=== PATIENT | male | born 1990 | race Caucasian/White ===

== ENCOUNTER 2016-08-15 17:26 | Emergency (ER) | payer OTHER ==
[2016-08-15 20:45] LABS: Hematocrit 44 % (42-52); Mean Corpuscular HGB Conc 34 g/dl (31-36); Mean Corpuscular Hemoglobin 27 pg (27-31); Mean Corpuscular Volume 79 fL (80-94); Mean Platelet Volume 7 um3 (7.4-10.4); Red Blood Count 5.56 10^6/ul (4.0-5.4); Red Cell Distribution Width 15 % (10.5-15); White Blood Count 5.6 10^3/ul (3.5-10.8)
[2016-08-15 21:03] LABS: ALT 19 U/L (7-52); AST 17 U/L (13-39); Albumin 4.3 g/dL (3.2-5.2); Alkaline Phosphatase 59 U/L (34-104); Anion Gap 3 mmol/L (2-11); BUN/Creatinine Ratio 16.2 (8-20); Blood Urea Nitrogen 17 mg/dL (6-24); CO2 Carbon Dioxide 28 mmol/L (22-32); Calcium 9.5 mg/dL (8.6-10.3); Chloride 103 mmol/L (101-111); EGFR African American 110.7 (>60); EGFR Non-African American 86.1 (>60); Glucose 83 mg/dL (70-100); Potassium 4.3 mmol/L (3.5-5.0); Sodium 134 mmol/L (133-145); Total Protein 7.3 g/dL (6.4-8.9)
[2016-08-15 21:03] LABS: Urine Bilirubin Negative (Negative); Urine Glucose Negative (Negative); Urine Nitrite Negative (Negative)
[2016-08-15 21:18] LABS: Benzodiazepine Urine Screen None Detected (None Detect)
[2016-08-15 21:29] LABS: Acetaminophen < 15 mcg/mL; Alcohol < 10 mg/dL (<10); Salicylate < 2.50 mg/dL (<30)
[2016-08-15 21:40] LABS: TSH (Thyroid Stimulating Horm) 1.93 mcIU/mL (0.34-5.60)
[2016-08-16 00:31] VITALS: BP 126/78
--- NOTE | 2016-08-16 00:42 | ED ---
arcelia Licona Timothy, scribed for Daniel Verdugo on 08/15/16 at 1926 . Psychiatric Complaint - HPI Summary HPI Summary: Vadim Bertrand III is a 26 yo male presenting to [facility] with anxiety and sinusitis since 1500. Pt states his pupils were not the same size, and felt a surreal feeling with a smell of ammonia. He states he has not had a bad anxiety attack in a while. He has taken clonazapam and feels better. He denies any depression or SI. He states he had difficulty getting his medication, and just recently returned to full dosage of his medication. His MHx includes panic anxiety, ADHD. - History Of Current Complaint Chief Complaint: EDGeneral Time Seen by Provider: 08/15/16 19:18 Hx Obtained From: Patient Onset/Duration: Sudden Onset Timing: Intermittent Episode Lasting - hours Severity Initially: Moderate Severity Currently: Moderate Character: Anxious Related History: Positive For: Prior Psychiatric Issues Has Suicidal: Denies: Thoughts, With A Plan Has Homicidal: Denies: Thoughts, With A Plan - Allergies/Home Medications Allergies/Adverse Reactions: Allergies Allergy/AdvReac Type Severity Reaction Status Date / Time Cefaclor [From [facility]] Allergy Unknown Unknown Verified 08/15/16 17:41 Reaction Details Sulfa Antibiotics Allergy Unknown Unknown Verified 08/15/16 17:41 Reaction Details PMH/Surg Hx/FS Hx/Imm Hx Endocrine/Hematology History: Denies: Hx Anticoagulant Therapy, Hx Diabetes, Hx Thyroid Disease Cardiovascular History: Denies: Hx Congestive Heart Failure, Hx Deep Vein Thrombosis, Hx Hypertension , Hx Myocardial Infarction, Hx Pacemaker/ICD Respiratory History: Denies: Hx Asthma, Hx Chronic Obstructive Pulmonary Disease (COPD), Hx Lung Cancer, Hx Pneumonia, Hx Pulmonary Embolism GI History: Reports: Hx Gastroesophageal Reflux Disease Denies: Hx Gall Bladder Disease, Hx Gastrointestinal Bleed, Hx Ulcer, Hx Urosepsis History: Denies: Hx Kidney Stones, Hx Renal Disease Neurological History: Reports: Other Neuro Impairments/Disorders - hx of childhood febrile seizures Denies: Hx Dementia, Hx Migraine, Hx Seizures, Hx Transient Ischemic Attacks (TIA) Psychiatric History: Reports: Hx Anxiety Denies: Hx Depression, Hx Schizophrenia, Hx Bipolar Disorder Infectious Disease History: No Infectious Disease History: Denies: Hx Clostridium Difficile, Hx Hepatitis, Hx Human Immunodeficiency Virus (HIV), Hx of Known/Suspected MRSA, Hx Shingles, Hx Tuberculosis, Hx Known/ Suspected VRE, Hx Known/Suspected VRSA, History Other Infectious Disease, Traveled Outside the [place] in Last 30 Days - Family History Known Family History: Positive: Hypertension Negative: Cardiac Disease, Diabetes - Social History Alcohol Use: None Substance Use Type: Reports: None Smoking Status (MU): Light Every Day Tobacco Smoker Review of Systems Constitutional: Negative Eyes: Other - different sized pupils Positive: Nasal Discharge Cardiovascular: Negative Respiratory: Negative Gastrointestinal: Negative Genitourinary: Negative Musculoskeletal: Negative Skin: Negative Neurological: Negative Psychological: Normal All Other Systems Reviewed And Are Negative: Yes Physical Exam Triage Information Reviewed: Yes Vital Signs On Initial Exam: Initial Vitals Temp Pulse Resp BP Pulse Ox 98.9 F 91 16 136/81 100 08/15/16 17:41 08/15/16 17:41 08/15/16 17:41 08/15/16 17:41 08/15/16 17:41 Vital Signs Reviewed: Yes Appearance: Positive: Well-Appearing, No Pain Distress Skin: Positive: Warm, Skin Color Reflects Adequate Perfusion, Dry Head/Face: Positive: Normal Head/Face Inspection Eyes: Positive: EOMI, SHIN ENT: Positive: Normal ENT inspection, Hearing grossly normal. Negative: Muffled /hoarse voice Neck: Positive: Supple, Nontender Respiratory/Lung Sounds: Positive: Clear to Auscultation, Breath Sounds Present Cardiovascular: Positive: RRR, Pulses are Symmetrical in both Upper and Lower Extremities Abdomen Description: Positive: Nontender, Soft Bowel Sounds: Positive: Present Musculoskeletal: Positive: Normal, Strength/ROM Intact Neurological: Positive: Normal, Sensory/Motor Intact, Alert, Oriented to Person Place, Time Psychiatric: Positive: Normal Diagnostics - Vital Signs Vital Signs Temp Pulse Resp BP Pulse Ox 08/15/16 18:46 98.7 F 85 16 108/76 100 08/15/16 17:41 98.9 F 91 16 136/81 100 - Laboratory Result Diagrams: 08/15/16 20:37 08/15/16 20:37 Lab Statement: Any lab studies that have been ordered have been reviewed, and results considered in the medical decision making process. Course/Dx - Course Assessment/Plan: Vadim Bertrand III is a 26 yo male presenting to [facility] with "uneven pupils" and anxiety. After review of his lab work, he is medically cleared for MHUE at 2126. He does not want to be evaluated, so he will leave AMA with his with no SI or HI, and will see his counselor tomorrow. - Differential Dx/Clinical Impression Provider Diagnosis: Anxiety Discharge - Discharge Plan Condition: Stable Disposition: AGAINST MEDICAL ADVICE Discharge Disposition Comment: does not wish to be evaluated The documentation as recorded by the arcelia fischer Timothy accurately reflects the service I personally performed and the decisions made by , Daniel Verdugo.
== END 2016-08-16 00:29 | disposition left against medical advice (07) ==
LOC: ED 17:26
DX: F41.9 Anxiety disorder, unspecified (principal); F17.210 Nicotine dependence, cigarettes, uncomplicated
CPT/HCPCS: 36415; 80053; 80307; 80320; 80329; 81003; 84443; 85025; 99283; G0480

== ENCOUNTER 2016-08-24 13:20 | Emergency (ER) | payer OTHER ==
[2016-08-24 13:40] VITALS: BP 125/82
--- NOTE | 2016-08-24 14:24 | UC ---
Melody Licona Anna, scribed for [facility],Jerson Rico MD on 08/24/16 at 1336 . Cardiac HPI - HPI Summary HPI Summary: MD Note Patient presents with CP, anxiety, and heart burn. Review of previous visits shows complaints of anxiety, panic attack, but no cardiovascular symptoms. Patient allergic to Cefaclor and Sulfa Antibiotics. Is on Effexor and Klonopin. Vital signs stable. Temperature 99.2. Pulse Ox 100. 1/10 discomfort. Nondrinker, light smoker. Hx anxiety and acid reflux. Nurses Note sinus congestion for past couple days. past couple months has had stomach bloating on and off. has had chest "discomfort" for past 20-3- minutes. pt states has history of acid reflux and anxiety, lost acid reflux medication. pt has been emotional on and off today and has had problems with anxiety. In Room Note Patient is a 26 y/o male coming to [facility] [place] presenting with sudden onset of CHEST DISCOMFORT that began about 1300 today. He says the discomfort feels like small little spots on either side of his sternum, lasting a few seconds each. He describes the severity of the pain as 1/10. He has GROGGY EYES, NASAL DRIP, CONGESTION, rare COUGHING, some DIZZINESS, one episode of EMESIS and BLOATED ABD. He reports some LEFT ARM PAIN at baseline. He sees a chiropractor for this. He denies diarrhea, ear pain, throat pain, APPIAH. His history is significant for anxiety and GERD. He no longer has his GERD medication. He was previously on Renatadine. He was on time-release Effexor, but after changing counselors, he was only taking a half-dose. He is now back on a full dose of Effexor and taking Klonopin for his anxiety. Two weeks ago, he became a father, which has been stressful and aggravating his anxiety. He denies a history of migraines, [place] , significant allergies. Onset: sudden Palliative/Provocative: chest pain Quality: discomfort Region: chest Severity: 1/10 Time: constant Associated Sx: Anxiety Home Rx: none - History of Current Complaint Stated Complaint: CHEST PAIN,ANXIETY,HEARTBURN Hx Obtained From: Patient, Family/[employer] - accompanied by grandmother Onset/Duration: Lasting Minutes, Still Present Initial Severity: Moderate Current Severity: Moderate Associated Signs & Symptoms: Positive: Anxiety - Allergy/Home Medications Allergies/Adverse Reactions: Allergies Allergy/AdvReac Type Severity Reaction Status Date / Time Cefaclor [From [facility]] Allergy Unknown Unknown Verified 08/15/16 17:41 Reaction Details Sulfa Antibiotics Allergy Unknown Unknown Verified 08/15/16 17:41 Reaction Details PMH/Surg Hx/FS Hx/Imm Hx Endocrine History Of: Denies: Diabetes, Thyroid Disease, Hyperthyroidism, Hypothyroidism, Dyslipidemia Cardiovascular History Of: Denies: Cardiac Disorders, Hypertension, Pacemaker/ICD, Myocardial Infarction , Congestive Heart Failure, Atrial Fibrillation, Deep Vein Thrombosis, Bleeding Disorders Respiratory History Of: Denies: COPD, Asthma, Bronchitis, Pneumonia, Pulmonary Embolism GI/ History Of: Reports: Gastroesophageal Reflux - He does not take any medication for this at this [facility]. Denies: Ulcer, Gastrointestinal Bleed, Gall Bladder Disease, Kidney Stones, Diverticulitis, Renal Disease, Urosepsis Neurological History Of: Denies: TIA, CVA, Dementia, Seizures, Migraine Psychological History Of: Reports: Anxiety Denies: Depression, Bipolar Disorder, Schizophrenia, Post Traumatic Stress Disorder Cancer History Of: Denies: Lung Cancer, Colorectal Cancer, Breast Cancer, Prostate Cancer, Cervical Cancer Other History Of: Negative For: HIV, Hepatitis B, Hepatitis C, Anticoagulant Therapy - Surgical History Surgical History: None - Family History Known Family History: Positive: Hypertension, Other - Anxiety Negative: Cardiac Disease, Diabetes - Social History 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 Lives: With Family Alcohol Use: None Substance Use Type: None Smoking Status (MU): Light Every Day Tobacco Smoker Household Exposure Type: Cigarettes Review of Systems Constitutional: Negative Skin: Negative Eyes: Other - "groggy" eyes ENT: Nasal Discharge, Other - Congestion Respiratory: Cough Cardiovascular: Chest Pain Gastrointestinal: Abdominal Pain - "bloated" abd, Vomiting Genitourinary: Negative Motor: Negative Neurovascular: Negative Musculoskeletal: Negative Neurological: Other - dizziness Psychological: Negative All Other Systems Reviewed And Are Negative: Yes Physical Exam Triage Information Reviewed: Yes Appearance: Well-Appearing, No Pain Distress, Well-Nourished Vital Signs: Initial Vital Signs Temp 99.2 F 08/24/16 13:31 Pulse 84 08/24/16 13:31 Resp 16 08/24/16 13:31 BP 125/82 08/24/16 13:31 Pulse Ox 100 08/24/16 13:31 Vital Signs Reviewed: Yes Eyes: Positive: Conjunctiva Clear ENT: Positive: Hearing grossly normal, Pharynx normal, TMs normal. Negative: Muffled/hoarse voice Neck: Positive: Supple, Nontender Respiratory: Positive: Chest non-tender, Lungs clear, Normal breath sounds, No respiratory distress Cardiovascular: Positive: RRR, No Murmur Abdomen Description: Positive: No Organomegaly, Soft, Other: - Abdominal exam shows mild epigastric discomfort to patient. Negative: Peritoneal Signs Bowel Sounds: Positive: Present Musculoskeletal: Positive: Strength Intact, Other: - [place] Neurological: Positive: Alert Psychological: Positive: Age Appropriate Behavior Skin: Negative: rashes Diagnostics - EKG Cardiac Rate: NL - 74 bpm, no ischemia Cardiac Rhythm: Sinus: Normal Ectopy: None ST Segment: Normal - Assessment/Plan Course Of Treatment: In discussion with patient and grandmother, we decided that many of his symptoms were due to anxiety. I assured him that he was not having a heart attack, and that I was pleased that he was now on his full dose of anti-anxiety medication, because he had run out of his medication for peptic discomfort, I will fill that medication. Patient and grandmother voiced understanding and agreement. - Differential Diagnoses - Chest Pain Differential Diagnosis/HQI/PQRI: Other: - cardiovascular disease v. anxiety v. acid reflux - Clinical Impression Provider Diagnoses: 1. Anxiety. 2. Transient chest discomfort secondary to anxiety. 3. Peptic disease Discharge - Discharge Plan Condition: Stable Disposition: HOME Prescriptions: Ranitidine HCl [Zantac 150 Maximum Streng] 150 mg PO BID #60 tab MDD 2 Patient Education Materials: Chest Pain (ED) Referrals: Frank Reich MD [Primary Care Provider] - Additional Instructions: WE DISCUSSED: 1. You are not having a heart attack. 2. You do have anxiety. 3. You do have acid reflux. I have refilled your acid reflux medication. Also, take Mylanta after meals and whenever you have pain. (2 tablespoons). Zantac (Ranitidine HCL) 150 mg Label: one by mouth twice daily The documentation as recorded by the Melody fischer Anna accurately reflects the service I personally performed and the decisions made by me, Jerson Barnett MD.
== END 2016-08-24 14:52 | disposition home or self-care (01) ==
LOC: UCEAST 13:20
DX: R07.89 Other chest pain (principal); F41.9 Anxiety disorder, unspecified; K30 Functional dyspepsia; Z88.1 Allergy status to other antibiotic agents; Z88.2 Allergy status to sulfonamides; F17.210 Nicotine dependence, cigarettes, uncomplicated
CPT/HCPCS: 93005; 99212; G0463

== ENCOUNTER 2016-08-28 15:14 | Emergency (ER) | payer OTHER ==
[2016-08-28 16:11] VITALS: BP 136/85
--- NOTE | 2016-08-28 16:48 | UC ---
Throat Pain/Nasal Tanner HPI - HPI Summary HPI Summary: complaint of anxiety for many years was on effexor which was controlling his anxiety but due to changing ccounselors he ran out of his medications has been on a month of only 75 mg of effexor for a month started back on his regular medication in the last 2 weeks but he is having more anxiety than usual more stress in his life d/t - denies any suicidal/homicidal ideation took klonopin at 1600 and that has helped him feel better- feels calm at this time complaint of nasal congestion for approx 3-4 days productive cough denies headaches, sore throat denies fever and chills - History of Current Complaint Chief Complaint: UCRespiratory Stated Complaint: RESP COMPLAINT Time Seen by Provider: 08/28/16 16:38 Hx Obtained From: Patient - Allergies/Home Medications Allergies/Adverse Reactions: Allergies Allergy/AdvReac Type Severity Reaction Status Date / Time Cefaclor [From Ceclor] Allergy Unknown Unknown Verified 08/15/16 17:41 Reaction Details Sulfa Antibiotics Allergy Unknown Unknown Verified 08/15/16 17:41 Reaction Details PMH/Surg Hx/FS Hx/Imm Hx Previously Healthy: No - anxiety Endocrine History Of: Denies: Diabetes, Thyroid Disease, Hyperthyroidism, Hypothyroidism, Dyslipidemia Cardiovascular History Of: Denies: Cardiac Disorders, Hypertension, Pacemaker/ICD, Myocardial Infarction , Congestive Heart Failure, Atrial Fibrillation, Deep Vein Thrombosis, Bleeding Disorders Respiratory History Of: Denies: COPD, Asthma, Bronchitis, Pneumonia, Pulmonary Embolism GI/ History Of: Reports: Gastroesophageal Reflux - He does not take any medication for this at this tiem. Denies: Ulcer, Gastrointestinal Bleed, Gall Bladder Disease, Kidney Stones, Diverticulitis, Renal Disease, Urosepsis Neurological History Of: Denies: TIA, CVA, Dementia, Seizures, Migraine Psychological History Of: Reports: Anxiety Denies: Depression, Bipolar Disorder, Schizophrenia, Post Traumatic Stress Disorder Cancer History Of: Denies: Lung Cancer, Colorectal Cancer, Breast Cancer, Prostate Cancer, Cervical Cancer Other History Of: Negative For: HIV, Hepatitis B, Hepatitis C, Anticoagulant Therapy - Surgical History Surgical History: None - Family History Known Family History: Positive: None, Hypertension, Other - Anxiety Negative: Cardiac Disease, Diabetes - Social History Occupation: Employed Part-time Lives: With Family Alcohol Use: None Substance Use Type: None Smoking Status (MU): Unknown if Ever Smoked Type: Smokeless Tobacco Household Exposure Type: Cigarettes Review of Systems Constitutional: Negative Skin: Negative Eyes: Negative ENT: Nasal Discharge Respiratory: Cough Cardiovascular: Negative Gastrointestinal: Negative Genitourinary: Negative Motor: Negative Neurovascular: Negative Musculoskeletal: Negative Neurological: Negative Psychological: Anxious - more controlled All Other Systems Reviewed And Are Negative: Yes Physical Exam Triage Information Reviewed: Yes Appearance: No Pain Distress, Well-Nourished Vital Signs: Initial Vital Signs Temp 97.8 F 08/28/16 16:05 Pulse 97 08/28/16 16:05 Resp 18 08/28/16 16:05 BP 136/85 08/28/16 16:05 Pulse Ox 99 08/28/16 16:05 Vital Signs Reviewed: Yes Eyes: Positive: Conjunctiva Clear ENT: Positive: Pharyngeal erythema, Nasal congestion, Nasal drainage, TMs normal. Negative: Tonsillar swelling, Tonsillar exudate Neck: Positive: No Lymphadenopathy Respiratory: Positive: Lungs clear, Normal breath sounds, No respiratory distress Cardiovascular: Positive: RRR, No Murmur, Pulses Normal Abdomen Description: Positive: Nontender, No Organomegaly, Soft Musculoskeletal: Positive: No Edema Neurological: Positive: Alert Psychological: Positive: Other: - slightly anxious Skin Exam: Normal Throat Pain/Nasal Course/Dx - Differential Dx/Diagnosis Differential Diagnosis/HQI/PQRI: URI Provider Diagnoses: URI. anxiety Discharge - Discharge Plan Condition: Stable Disposition: HOME Prescriptions: Guaifenesin 400 mg PO BID #10 tab Patient Education Materials: Upper Respiratory Infection (ED), Anxiety (ED) Referrals: Frank Reich MD [Primary Care Provider] - Additional Instructions: VIRAL UPPER RESPIRATORY INFECTION (COMMON COLD) If your anxiety becomes uncontrolled please proceed to the emergency department for further evaluation What is Viral Upper Respiratory Infection? Viral upper respiratory infection is the medical term for the common cold. Respiratory infections can be caused by either a virus or bacteria. The common cold is caused by a virus. The virus travels through the air and can be passed easily from one person to another. This is one reason that it is so important to cover your mouth when you cough or sneeze. When you cover your mouth you will get the virus on your hands. If you touch something with that hand the virus is spread to the object you touch. Because of this you should be sure to wash your hands often when you have a cold. Symptoms usually begin 1 to 3 days after the virus takes hold in your body. Other people can catch your cold even before you start to notice symptoms, which is one reason why colds are hard to prevent. Symptoms May Include: Scratchiness or tickling in the throat Sore throat Stuffy nose Generalized aches and pains Coughing or sneezing Feeling tired Treatment Recommendations: Drink plenty of clear, nonalcoholic fluids, such as water, sports drinks, or juice. For example, an average adult should drink 8 ounces every hour, a child 6 to 10 years should drink 4 ounces every hour, and a child under 6 should drink 1 to 2 ounces every hour. You should rest as much as possible. You can use a cool-mist humidifier or steam vaporizer to increase air moisture. This will make it easier to breathe. Remember that a steam vaporizer may contain hot water that can cause severe curry. If you smoke, stopsmoke irritates bronchial passages. If you are coughing up mucus, and milk seems to make the sputum thicker, do not eat or drink foods that contain milk. You want to try to cough up mucous whenever possible so that you dont get pneumonia. Do not use cough suppressant medicine without your healthcare providers [place]. You should take all medications prescribed until completely gone, or as instructed. Non-prescription medicine such as acetaminophen (Tylenol) or ibuprofen (Motrin , Advil) may help your aches, pains, and fever. Do not take someone else's medicine, or penicillin tablets that you may have saved. You could cause a more serious problem than you already have. Don't bundle up to sweat out a fever. It only makes your fever worse. If you feel cold, cover up; if you feel warm, dress lightly.
== END 2016-08-28 17:07 | disposition home or self-care (01) ==
LOC: UCEAST 15:14
DX: J06.9 Acute upper respiratory infection, unspecified (principal); F41.9 Anxiety disorder, unspecified; Z88.1 Allergy status to other antibiotic agents; Z88.2 Allergy status to sulfonamides; Z77.22 Contact with and (suspected) exposure to environmental tobacco smoke (acute) (chronic)
CPT/HCPCS: 99212; G0463

== ENCOUNTER 2016-09-29 15:52 | Emergency (ER) | payer OTHER ==
[2016-09-29 19:56] VITALS: BP 124/81
--- NOTE | 2016-10-09 10:35 | UC ---
Analilia Licona Erika, scribed for Ashley Isaac DO on 09/29/16 at 1931 . Psychiatric Complaint HPI - HPI Summary HPI Summary: Patient is a 26-year-old male presenting to [facility] with a CC of anxiety. He has a Hx anxiety, but it has been under good control until today. Patient reports that he notes dullness in the left shoulder, axilla, and arm, which sometimes goes to the neck, which sparked the anxiety. He has had these pains chronically. He reports that his anxiety is usually linked to concerns about his health. Patient notes recent stress. Patient also reports sore throat for the past two days. He states his left jaw has been popping for about the past month and a half. He denies all other symptoms include diaphoresis, nausea, vomiting, and diarrhea. Hx "air in stomach" - sees a approver. Denies FHx [place], sudden deaths before 50. Patient does not smoke. - History Of Current Complaint Chief Complaint: UCAlteredMentalStatus Stated Complaint: ANXIETY, AND JAW PAIN Time Seen by Provider: 09/29/16 16:54 Hx Obtained From: Patient Onset/Duration: Gradual Onset, Lasting Hours, Resolved Timing: Constant Severity Initially: Moderate Severity Currently: None Character: Anxious Aggravating Factor(s): Recent Stress Related History: Positive For: Prior Psychiatric Issues - anxiety - Allergies/Home Medications Allergies/Adverse Reactions: Allergies Allergy/AdvReac Type Severity Reaction Status Date / Time Cefaclor [From Ceclor] Allergy Unknown Unknown Verified 09/29/16 16:35 Reaction Details Sulfa Antibiotics Allergy Unknown Unknown Verified 09/29/16 16:35 Reaction Details PMH/Surg Hx/FS Hx/Imm Hx Endocrine History Of: Denies: Diabetes Cardiovascular History Of: Denies: Hypertension Psychological History Of: Reports: Anxiety Cancer History Of: Denies: Lung Cancer, Colorectal Cancer, Breast Cancer, Prostate Cancer, Cervical Cancer Other History Of: Negative For: HIV, Hepatitis B, Hepatitis C, Anticoagulant Therapy - Surgical History Surgical History: None - Family History Known Family History: Positive: Hypertension, Other - Anxiety Negative: Cardiac Disease, Diabetes - Social History Occupation: Employed Full-time Lives: With Family Alcohol Use: None Substance Use Type: None Smoking Status (MU): Never Smoked Tobacco Review of Systems Constitutional: Negative Skin: Negative Eyes: Negative ENT: Sore Throat, Other - left jaw popping Respiratory: Negative Cardiovascular: Negative Gastrointestinal: Negative Genitourinary: Negative Motor: Negative Neurovascular: Negative Musculoskeletal: Other: - dullness in the left shoulder, axilla, arm, neck Neurological: Negative Psychological: Anxious All Other Systems Reviewed And Are Negative: Yes Physical Exam Triage Information Reviewed: Yes Appearance: Well-Appearing, No Pain Distress, Well-Nourished Vital Signs: Initial Vital Signs Temp 99.1 F 09/29/16 16:28 Pulse 100 09/29/16 16:28 Resp 20 09/29/16 16:28 BP 121/88 09/29/16 16:28 Pulse Ox 99 09/29/16 16:28 Vital Signs Reviewed: Yes Eyes: Positive: Conjunctiva Clear. Negative: Discharge ENT: Positive: Hearing grossly normal, TMs normal. Negative: Tonsillar swelling , Tonsillar exudate, Trismus, Muffled/hoarse voice Dental Exam: Other - palpable tension in the left TMJ with displacement and clicking of the jaw when open to fullest extension Neck: Positive: Supple, Nontender Respiratory: Positive: Lungs clear, Normal breath sounds, No respiratory distress, No accessory muscle use Cardiovascular: Positive: RRR, No Murmur Musculoskeletal Exam: Other - diminished pulse with external rotation, extension , and abduction of the shoulder Musculoskeletal: Positive: Strength Intact, ROM Intact Neurological: Positive: Alert, Muscle Tone Normal Psychological Exam: Normal Psychological: Positive: Age Appropriate Behavior Skin Exam: Other - warm, dry, normal color Diagnostics - Laboratory Diagnostic Studies Completed/Ordered: EKG at 16:19. NSR at [address] changes. Psych Complaint Course/Dx - Differential Dx/Diagnosis Differential Diagnosis/HQI/PQRI: Anxiety Provider Diagnoses: thoracic outlet, anxiety, tmj syndrom Discharge - Discharge Plan Condition: Stable Disposition: HOME Patient Education Materials: Temporomandibular Disorder (ED), Thoracic Outlet Syndrome (ED), Anxiety (ED) Referrals: Frank Reich MD [Primary Care Provider] - If Needed (FOLLOW UP IN 3-5 DAYS) Additional Instructions: YOUR EKG DID NOT REVEAL ANY INDICATION OF PROBLEMS WITH YOUR HEART. YOUR ARM AND SHOULDER PAIN ARE LIKELY THE RESULT OF THORACIC OUTLET SYNDROME. IF YOU HAD NOT ALREADY SCHEDULED AN APPOINTMENT, WE WOULD HAVE GIVEN YOU A PRESCRIPTION FOR PHYSICAL THERAPY. YOU WOULD LIKELY BENEFIT FROM OSTEOPATHIC TREATMENT. WE RECOMMEND THAT YOU FIND AN OSTEOPATHIC PHYSICIAN IN YOUR AREA WHO FOCUSES EXCLUSIVELY ON OSTEOPATHIC MANIPULATIVE MEDICINE WITH EXPERTISE IN MYOFACIAL, LYMPHATIC, VISCERAL AND INTEROSSEOUS WORK The documentation as recorded by the Analilia fischer Erika accurately reflects the service I personally performed and the decisions made by me, Ashley Isaac DO.
== END 2016-09-29 20:04 | disposition home or self-care (01) ==
LOC: UCEAST 15:52
DX: G54.0 Brachial plexus disorders (principal); F41.8 Other specified anxiety disorders; M26.629 Arthralgia of temporomandibular joint, unspecified side; Z88.1 Allergy status to other antibiotic agents; Z88.2 Allergy status to sulfonamides
CPT/HCPCS: 93005; 99212; G0463

== ENCOUNTER 2016-10-14 17:42 | Emergency (ER) | payer OTHER ==
[2016-10-14 18:35] VITALS: BP 124/85
--- NOTE | 2016-10-14 19:05 | UC ---
Abdominal Pain Male HPI - HPI Summary HPI Summary: The patient comes in today for: 1. "last couple of days, I've had excess (intestinal) gas." Onset: 7 hours ago. Palliative/provocative: Laying down on either his back or stomach makes it better. Quality: Tightness "like I'm flexing my abds but not doing it." Region: Epigastric area. Severity: 10 Time: constant. Associated symptoms: "It feels like I've been doing a lot of abdominal crunches all the time." "I"ve got really bad health anxiety." vomiting: None. Fevers: NOne. Diarrhea: None. Last BM: 3 hours ago--normal. * - History of Current Complaint Chief Complaint: UCAbdominalPain Stated Complaint: ABD PAIN Time Seen by Provider: 10/14/16 18:54 Hx Obtained From: Patient - Allergies/Home Medications Allergies/Adverse Reactions: Allergies Allergy/AdvReac Type Severity Reaction Status Date / Time Cefaclor [From [facility]] Allergy Unknown Unknown Verified 09/29/16 16:35 Reaction Details Sulfa Antibiotics Allergy Unknown Unknown Verified 09/29/16 16:35 Reaction Details PMH/Surg Hx/FS Hx/Imm Hx Previously Healthy: No Endocrine History Of: Denies: Diabetes, Thyroid Disease, Hyperthyroidism, Hypothyroidism, Dyslipidemia Cardiovascular History Of: Denies: Cardiac Disorders, Hypertension, Pacemaker/ICD, Myocardial Infarction , Congestive Heart Failure, Atrial Fibrillation, Deep Vein Thrombosis, Bleeding Disorders Respiratory History Of: Denies: COPD, Asthma, Bronchitis, Pneumonia, Pulmonary Embolism GI/ History Of: Reports: Gastroesophageal Reflux - He does not take any medication for this at this [facility]. Denies: Ulcer, Gastrointestinal Bleed, Gall Bladder Disease, Kidney Stones, Diverticulitis, Renal Disease, Urosepsis Neurological History Of: Denies: TIA, CVA, Dementia, Seizures, Migraine Psychological History Of: Reports: Anxiety Denies: Depression, Bipolar Disorder, Schizophrenia, Post Traumatic Stress Disorder Cancer History Of: Denies: Lung Cancer, Colorectal Cancer, Breast Cancer, Prostate Cancer, Cervical Cancer Other History Of: Negative For: HIV, Hepatitis B, Hepatitis C, Anticoagulant Therapy - Surgical History Surgical History: None - Family History Known Family History: Positive: Hypertension, Other - Anxiety Negative: Cardiac Disease, Diabetes, Renal Disease - Social History Occupation: Unemployed Alcohol Use: None Substance Use Type: None Smoking Status (MU): Never Smoked Tobacco Type: Smokeless Tobacco Have You Smoked in the Last Year: No Household Exposure Type: Cigarettes Review of Systems Constitutional: Negative Skin: Negative Eyes: Negative ENT: Negative Respiratory: Negative Cardiovascular: Negative, Chest Pain - He states that it is from his thoracic outlet syndrome. Gastrointestinal: Abdominal Pain Genitourinary: Negative All Other Systems Reviewed And Are Negative: Yes Physical Exam Triage Information Reviewed: Yes Appearance: Well-Appearing, No Pain Distress, Well-Nourished Vital Signs: Initial Vital Signs Temp 98.2 F 10/14/16 18:31 Pulse 90 10/14/16 18:31 Resp 18 10/14/16 18:31 BP 124/85 10/14/16 18:31 Pulse Ox 98 10/14/16 18:31 Vital Signs Reviewed: Yes Eyes: Positive: Conjunctiva Clear. Negative: Discharge ENT: Positive: Hearing grossly normal. Negative: Pharyngeal erythema, Nasal congestion, Nasal drainage, TM bulging, TM dull, TM red, Tonsillar swelling, Tonsillar exudate Dental: Negative: Gross Decay/Caries @, Dental Fracture @ Neck: Positive: Supple, Nontender, No Lymphadenopathy. Negative: Nuchal Rigidity Respiratory: Positive: Lungs clear, No respiratory distress, No accessory muscle use. Negative: Crackles, Wheezing Cardiovascular: Positive: RRR, No Murmur Abdomen Description: Positive: Nontender, No Organomegaly, Soft. Negative: CVA Tenderness (R), CVA Tenderness (L), Distended, Guarding, McBurney's Point Tenderness, Peritoneal Signs Musculoskeletal: Positive: Strength Intact, ROM Intact, No Edema Neurological: Positive: Alert, Muscle Tone Normal Psychological: Positive: Normal Response To Family, Age Appropriate Behavior, Consolable Skin: Negative: rashes, breakdown Abd Pain Male Course/Dx - Course Course Of Treatment: Patient was told that I did not know for sure what was causing his abdominal pain, but stated that his abdominal exam did not have any obvious worrisome signs. If he wanted further evaluation, he was told how he could get it on a more urgent vs outpatient basis. He was concerned enough that he did not want any further testing here and just wanted to go to the ER for further evaluation. - Differential Dx/Clinical Impression Provider Diagnoses: ABdominal pain. Discharge - Discharge Plan Condition: Stable Disposition: HOME Patient Education Materials: Acute Abdominal Pain (ED) Additional Instructions: As you requested, please go directly to the [facility].
== END 2016-10-14 22:50 | disposition home or self-care (01) ==
LOC: UCEAST 17:42
DX: R10.9 Unspecified abdominal pain (principal); Z88.2 Allergy status to sulfonamides
CPT/HCPCS: 99212; G0463

== ENCOUNTER 2016-10-14 20:18 | Emergency (ER) | payer OTHER ==
[2016-10-14] MEDS ORDERED: NS 0.9% 1000 ML* 1,000 ML IV ONE (22:44)
[2016-10-14] MEDS ORDERED: Pantoprazole IV* 40 MG IV ONE (22:44)
[2016-10-14 23:03] LABS: Urine Bilirubin Negative (Negative); Urine Glucose Negative (Negative); Urine Nitrite Negative (Negative)
[2016-10-14 23:16] LABS: Hematocrit 46 % (42-52); Hemoglobin 15.6 g/dl (14.0-18.0); Mean Corpuscular HGB Conc 34 g/dl (31-36); Mean Corpuscular Hemoglobin 27 pg (27-31); Mean Corpuscular Volume 79 fL (80-94); Mean Platelet Volume 7 um3 (7.4-10.4); Red Blood Count 5.84 10^6/ul (4.0-5.4); Red Cell Distribution Width 13 % (10.5-15)
[2016-10-14 23:35] LABS: Albumin 4.7 g/dL (3.2-5.2); BUN/Creatinine Ratio 19.6 (8-20); Calcium 9.5 mg/dL (8.6-10.3); EGFR African American 108.3 (>60); EGFR Non-African American 84.2 (>60); Globulin 2.9 g/dL (2-4); Potassium 3.8 mmol/L (3.5-5.0); Total Bilirubin 0.7 mg/dL (0.2-1.0); Total Protein 7.6 g/dL (6.4-8.9)
[2016-10-14 23:42] LABS: Troponin I 0.21 ng/mL (<0.04)
[2016-10-15] MEDS ORDERED: Aspirin TAB* 325 MG PO ONE (00:06)
[2016-10-15] MEDS ORDERED: Aspirin Low Dose CHEW TAB* 81 MG PO ONE (00:38)
[2016-10-15] MEDS ORDERED: Iohexol 300* (CONTRAST) 10 ML SDV IV ONE (01:12)
[2016-10-15] MEDS ORDERED: clonazePAM TAB(*) 1 MG PO ONE (01:27)
[2016-10-15] MEDS ORDERED: clonazePAM TAB(*) 0.5 MG PO ONE (01:35)
--- NOTE | 2016-10-15 01:51 | ED ---
Zach Licona Adam, scribed for Daniel Verdugo on 10/14/16 at 2243 . Abdominal Pain/Male - HPI Summary HPI Summary: Pt is a 26 year old male presenting with abdominal pain. It set on at 12:30 today and has been constant since then. He describes the pain as an ache in the central/epigastric region of his abdomen and he states that it feels like soreness after doing sit-ups (but he has not done any abdominal exercises). He also feels like there is gas in his abdomen. Pt denies any nausea, vomiting, or diarrhea. PMHx of GERD and anxiety. Patient still has his gallbladder and appendix. Negative alcohol/drug use. Former tobacco use. - History of Current Complaint Chief Complaint: EDAbdPain Stated Complaint: ABD PAIN Time Seen by Provider: 10/14/16 22:21 Hx Obtained From: Patient Onset/Duration: Sudden Onset, Lasting Hours, Still Present Timing: Constant Severity Initially: Moderate Severity Currently: Moderate Location: Diffuse, Epigastric, Umbilical Radiates: No Character: Other: - Ache (feels like soreness after doing sit-ups) Aggravating Factor(s): Nothing Alleviating Factor(s): Nothing Associated Signs And Symptoms: Positive: Negative - Allergies/Home Medications Allergies/Adverse Reactions: Allergies Allergy/AdvReac Type Severity Reaction Status Date / Time Cefaclor [From [facility]] Allergy Unknown Unknown Verified 10/14/16 22:25 Reaction Details Sulfa Antibiotics Allergy Unknown Unknown Verified 10/14/16 22:25 Reaction Details PMH/Surg Hx/FS Hx/Imm Hx Endocrine/Hematology History: Denies: Hx Anticoagulant Therapy, Hx Diabetes, Hx Thyroid Disease Cardiovascular History: Denies: Hx Congestive Heart Failure, Hx Deep Vein Thrombosis, Hx Hypertension , Hx Myocardial Infarction, Hx Pacemaker/ICD Respiratory History: Denies: Hx Asthma, Hx Chronic Obstructive Pulmonary Disease (COPD), Hx Lung Cancer, Hx Pneumonia, Hx Pulmonary Embolism GI History: Reports: Hx Gastroesophageal Reflux Disease Denies: Hx Gall Bladder Disease, Hx Gastrointestinal Bleed, Hx Ulcer, Hx Urosepsis History: Denies: Hx Kidney Stones, Hx Renal Disease Neurological History: Reports: Other Neuro Impairments/Disorders - hx of childhood febrile seizures Denies: Hx Dementia, Hx Migraine, Hx Seizures, Hx Transient Ischemic Attacks (TIA) Psychiatric History: Reports: Hx Anxiety Denies: Hx Depression, Hx Schizophrenia, Hx Bipolar Disorder - Immunization History Date of Tetanus Vaccine: utd Date of Influenza Vaccine: none Infectious Disease History: No Infectious Disease History: Denies: Hx Clostridium Difficile, Hx Hepatitis, Hx Human Immunodeficiency Virus (HIV), Hx of Known/Suspected MRSA, Hx Shingles, Hx Tuberculosis, Hx Known/ Suspected VRE, Hx Known/Suspected VRSA, History Other Infectious Disease, Traveled Outside the [place] in Last 30 Days - Family History Known Family History: Positive: Hypertension, Other - Anxiety Negative: Cardiac Disease, Diabetes, Renal Disease - Social History Occupation: Unemployed Lives: With Family Alcohol Use: None Hx Substance Use: No Substance Use Type: Reports: None Hx Tobacco Use: Yes Smoking Status (MU): Former Smoker Type: Smokeless Tobacco Have You Smoked in the Last Year: No Review of Systems Negative: Fever Positive: Abdominal Pain. Negative: Vomiting, Diarrhea, Nausea All Other Systems Reviewed And Are Negative: Yes Physical Exam Triage Information Reviewed: Yes Vital Signs On Initial Exam: Initial Vitals Temp Pulse Resp BP Pulse Ox 97 F 77 18 126/101 100 10/14/16 20:21 10/14/16 20:21 10/14/16 20:21 10/14/16 20:21 10/14/16 20:21 Vital Signs Reviewed: Yes Appearance: Positive: Well-Appearing, No Pain Distress Skin: Positive: Warm, Skin Color Reflects Adequate Perfusion, Dry Head/Face: Positive: Normal Head/Face Inspection Eyes: Positive: EOMI, SHIN ENT: Positive: Normal ENT inspection Neck: Positive: Supple, Nontender Respiratory/Lung Sounds: Positive: Clear to Auscultation, Breath Sounds Present Cardiovascular: Positive: RRR, Pulses are Symmetrical in both Upper and Lower Extremities Abdomen Description: Positive: Nontender, Soft Bowel Sounds: Positive: Present Musculoskeletal: Positive: Normal, Strength/ROM Intact - Jayna Coma Scale Coma Scale Total: 15 Diagnostics - Vital Signs Vital Signs Temp Pulse Resp BP Pulse Ox 10/14/16 22:22 97.8 F 76 14 130/82 98 10/14/16 20:21 97 F 77 18 126/101 100 - Laboratory Result Diagrams: 10/14/16 23:05 10/14/16 23:05 Lab Statement: Any lab studies that have been ordered have been reviewed, and results considered in the medical decision making process. - CT A/P CT Interpretation Completed By: Radiologist - IMPRESSION: NO LOCALIZING SIGNS FOR ACUTE PATHOLOGY. - EKG 23:42 Cardiac Rate: NL - 67 BPM EKG Rhythm: Sinus Rhythm - Normal - Additional Comments Diagnostic Additional Comments: Troponin I - 0.21 Abdominal Pain Fem Course/Dx - Diagnoses Provider Diagnoses: Epigastric pain, Rule out ACS, Positive troponin - Provider Notifications Discussed Care Of Patient With: Dr. Arnold (Cardiology) at 00:40. He recommended repeat troponin, CPK, and admit the patient. Dr. Montoya ( hospitalist) at 01:25. He accepts admission of patient. Discharge - Discharge Plan Condition: Stable Disposition: ADMITTED TO [facility] Referrals: Frank Reich MD [Primary Care Provider] - The documentation as recorded by the Zach fischer Adam accurately reflects the service I personally performed and the decisions made by , Dnaiel Verdugo.
[2016-10-15 02:14] LABS: Benzodiazepine Urine Screen None Detected (None Detect)
[2016-10-15 04:34] VITALS: BP 107/70
--- NOTE | 2016-10-15 10:59 | RAD ---
Indication: Abdominal pain, right lower quadrant pain. Contrast: Administered 100.0 ml of OMNIPAQUE 300 mgi/ml CT of the abdomen and pelvis was performed after oral and IV contrast administration. No prior study is available for comparison. Coronal and sagittal reconstructed images were obtained. The lung bases demonstrate no pleural fluid, nodules or masses. Heart is of normal size without evidence of pericardial effusion. The liver is normal in size. No focal lesions or intrahepatic ductal dilatation is noted. The spleen is normal in size. The pancreas demonstrates no mass or pancreatic duct dilatation. The common duct is not dilated. The gallbladder demonstrates no calcified gallstones. No pericholecystic fluid or wall thickening is identified. No dilated loops of bowel are noted. The colon is filled with stool. No adrenal lesions are noted. The kidneys demonstrate symmetric nephrograms without focal lesions. No hydronephrosis is noted in either kidney. No retroperitoneal or pelvic lymphadenopathy is noted. Aorta and inferior vena cava are patent. There is a left-sided vena cava noted. CT of the pelvis demonstrates no retroperitoneal or pelvic lymphadenopathy. The colon is filled with stool. Beginning bladder is otherwise unremarkable. No hernias are noted. The appendix is visualized and is normal in caliber. The urinary bladder is distended. No free fluid is identified. The prostate and seminal vesicles are unremarkable. Small mesenteric lymph nodes are scattered throughout the mesentery especially in the right lower quadrant. The possibility of mesenteric adenitis should BE considered. IMPRESSION: NORMAL APPENDIX. NO FREE FLUID IS IDENTIFIED. PROMINENT LYMPH NODES ADJACENT TO THE CECAL MESENTERY WHICH MAY REPRESENT MESENTERIC ADENITIS. CLINICAL CORRELATION IS SUGGESTED. LEFT-SIDED INFERIOR VENA CAVA WHICH IS LIKELY A NORMAL ANATOMIC VARIANT.
== END 2016-10-15 04:46 | disposition short-term general hospital (02) ==
LOC: ED 20:18
DX: R10.13 Epigastric pain (principal); R79.89 Other specified abnormal findings of blood chemistry; Z87.891 Personal history of nicotine dependence; K21.9 Gastro-esophageal reflux disease without esophagitis; F41.9 Anxiety disorder, unspecified; Z88.2 Allergy status to sulfonamides
CPT/HCPCS: 36415; 74177; 80053; 80307; 81003; 82550; 82553; 83605; 83690; 84484; 85025; 85610; 85730; 93005; 96360; 96374; 99283; A9270-GY; Q9967

== ENCOUNTER 2016-11-15 10:39 | Emergency (ER) | payer OTHER ==
[2016-11-15 12:14] VITALS: BP 119/75
--- NOTE | 2016-11-15 12:15 | RAD ---
INDICATION: Abdominal pain COMPARISON: CT abdomen pelvis October 15, 2016 TECHNIQUE: Erect and supine views of the abdomen are submitted. FINDINGS: Bones: There are no acute bony findings. Soft tissues: The soft tissues appear normal. The psoas margins are sharp. Bowel gas pattern: Normal Calcifications: There are no abnormal calcifications. Other: None IMPRESSION: NEGATIVE EXAMINATION.
--- NOTE | 2016-11-15 21:06 | ED ---
Ranulfo Licona Billy, scribed for Raúl Oneil MD on 11/15/16 at 1100 . Abdominal Pain/Male - HPI Summary HPI Summary: Patient is a 26 year-old male coming to [facility] for evaluation of a "weird feeling " in his epigastric region which he can only describe as tightness and spasms. His symptoms started after having 2 strips of roe this morning. He reportedly has "bad health anxiety" and is "freaking out that he has an aortic aneurysm" after looking up his symptoms on the internet. He took clonazepam for his anxiety today. The episodes of discomfort occur intermittent, and more frequently when he is laying down. It does not radiate. He has been eating and drinking normally in the last few days. However, he has had a great increase in physical activity in the last several days. Last BM yesterday. - History of Current Complaint Chief Complaint: EDAbdPain Stated Complaint: BUMP ON ABD Time Seen by Provider: 11/15/16 10:51 Hx Obtained From: Patient Onset/Duration: Gradual Onset Timing: Intermittent Severity Initially: Moderate Severity Currently: Moderate Location: Epigastric Radiates: No Character: Other: - Tightness and spasms Aggravating Factor(s): Food - Started after having food Alleviating Factor(s): Nothing - Allergies/Home Medications Allergies/Adverse Reactions: Allergies Allergy/AdvReac Type Severity Reaction Status Date / Time Cefaclor [From [facility]] Allergy Unknown Unknown Verified 10/14/16 22:25 Reaction Details Sulfa Antibiotics Allergy Unknown Unknown Verified 10/14/16 22:25 Reaction Details PMH/Surg Hx/FS Hx/Imm Hx Endocrine/Hematology History: Denies: Hx Anticoagulant Therapy, Hx Diabetes, Hx Thyroid Disease Cardiovascular History: Denies: Hx Congestive Heart Failure, Hx Deep Vein Thrombosis, Hx Hypertension , Hx Myocardial Infarction, Hx Pacemaker/ICD Respiratory History: Denies: Hx Asthma, Hx Chronic Obstructive Pulmonary Disease (COPD), Hx Lung Cancer, Hx Pneumonia, Hx Pulmonary Embolism GI History: Reports: Hx Gastroesophageal Reflux Disease Denies: Hx Gall Bladder Disease, Hx Gastrointestinal Bleed, Hx Ulcer, Hx Urosepsis History: Denies: Hx Kidney Stones, Hx Renal Disease Neurological History: Reports: Other Neuro Impairments/Disorders - hx of childhood febrile seizures Denies: Hx Dementia, Hx Migraine, Hx Seizures, Hx Transient Ischemic Attacks (TIA) Psychiatric History: Reports: Hx Anxiety Denies: Hx Depression, Hx Schizophrenia, Hx Bipolar Disorder - Immunization History Date of Tetanus Vaccine: utd Date of Influenza Vaccine: none Infectious Disease History: No Infectious Disease History: Denies: Hx Clostridium Difficile, Hx Hepatitis, Hx Human Immunodeficiency Virus (HIV), Hx of Known/Suspected MRSA, Hx Shingles, Hx Tuberculosis, Hx Known/ Suspected VRE, Hx Known/Suspected VRSA, History Other Infectious Disease, Traveled Outside the [place] in Last 30 Days - Family History Known Family History: Positive: Hypertension, Other - Anxiety Negative: Cardiac Disease, Diabetes, Renal Disease - Social History Alcohol Use: None Substance Use Type: Reports: None Smoking Status (MU): Former Smoker Type: Smokeless Tobacco Have You Smoked in the Last Year: No Review of Systems Positive: Abdominal Pain Positive: Anxious All Other Systems Reviewed And Are Negative: Yes Physical Exam - Summary Physical Exam Summary: VITAL SIGNS: Reviewed. GENERAL: Patient is a well developed and nourished male who is lying comfortable in the stretcher. Patient is not in any acute respiratory distress. HEAD AND FACE: Normocephalic and atraumatic. EYES: PERRLA, EOMI x 2, No injected conjunctiva. EARS: Hearing grossly intact. Ear canals and tympanic membranes are WNL. MOUTH: Oropharynx within normal limits. NECK: Supple, trachea is midline, no adenopathy, no JVD. CHEST: Symmetric, no tenderness at palpation LUNGS: Clear to auscultation bilaterally. No wheezing or crackles. CVS: RRR,, S1 and S2 present, no murmurs or gallops appreciated. Patient has strong equal femoral and radial pulses. ABDOMEN: Soft, non-tender. No signs of distention. Positive bowel sounds. No rebound no guarding, and no masses palpated. No abdominal bruit or pulsations. EXTREMITIES: FROM in all major joints, no edema, no cyanosis or clubbing. NEURO: Alert and oriented x 3. No acute neurological deficits. Speech is normal. SKIN: Dry and warm Triage Information Reviewed: Yes Vital Signs On Initial Exam: Initial Vitals Temp Pulse Resp BP Pulse Ox 97.8 F 90 20 136/81 100 11/15/16 10:44 11/15/16 10:44 11/15/16 10:44 11/15/16 10:44 11/15/16 10:44 Vital Signs Reviewed: Yes Diagnostics - Vital Signs Vital Signs Temp Pulse Resp BP Pulse Ox 11/15/16 10:47 97.9 F 109 20 136/81 100 11/15/16 10:44 97.8 F 90 20 136/81 100 - Laboratory Lab Statement: Any lab studies that have been ordered have been reviewed, and results considered in the medical decision making process. - Radiology Abdominal XRay Xray Interpretation: No Acute Changes Radiology Interpretation Completed By: Radiologist Re-Evaluation - Re-Evaluation First Eval Re-Evaluation Time: 12:06 Comment: Imaging results reviewed. Abdominal Pain Fem Course/Dx - Course Assessment/Plan: Patient is a 26 year-old male coming to [facility] for evaluation of a "weird feeling" in his epigastric region which he can only describe as tightness and spasms. His symptoms started after having 2 strips of roe this morning. He reportedly has "bad health anxiety" and is "freaking out that he has an aortic aneurysm" after looking up his symptoms on the internet. He took clonazepam for his anxiety today. The episodes of discomfort occur intermittent , and more frequently when he is laying down. It does not radiate. He has been eating and drinking normally in the last few days. However, he has had a great increase in physical activity in the last several days. Last BM yesterday. Patient comes in with the complaint of having anxiety and possible AAA. However , he does not have any significant abdominal pain. He reports only fullness. The patient denies any back pain or feeling like he is going to pass out. The patient smoked about half a pack a day for about 3 years since he was 16. He denies any history of HTN, DM, HLD and he also denies any family history of AAA at his age. Therefore I have a low suspicion for a AAA. I did an x-ray examination of the abdomen which was negative for any acute pathology. I believe that the patient has some increased stool in the colon and was therefore prescribed Miralax. In the physical exam, he also did not have any bounding pulses or bruits. Unofficial bedside ultrasound did not show any dissection. - Diagnoses Differential Diagnosis/HQI/PQRI: Constipation, Other - Anxiety Provider Diagnoses: Anxiety, Constipation Discharge - Discharge Plan Condition: Stable Disposition: HOME Prescriptions: Polyethylene Glycol 3350* [Miralax*] 17 gm PO DAILY #12 packet Patient Education Materials: Constipation (ED), Anxiety (ED) Referrals: Frank Reich MD [Primary Care Provider] - The documentation as recorded by the maria elenaibRanulfo nolen Billy accurately reflects the service I personally performed and the decisions made by me, Raúl Oneil MD.
== END 2016-11-15 12:13 | disposition home or self-care (01) ==
LOC: ED 10:39
DX: F41.9 Anxiety disorder, unspecified (principal); K59.00 Constipation, unspecified; Z87.891 Personal history of nicotine dependence; R10.9 Unspecified abdominal pain
CPT/HCPCS: 74020; 99282

== ENCOUNTER 2016-12-18 03:57 | Emergency (ER) | payer OTHER ==
--- NOTE | 2016-12-18 04:27 | ED ---
Zohreh Licona Edward, scribed for Jerson Ovalle MD on 12/18/16 at 0420 . Psychiatric Complaint - HPI Summary HPI Summary: 26 y/o male SIMONE s/p panic attack today on the way back down from his friend's wedding. Patient stated he has had bad anxiety in the past few days that was aggravated by the emotions he felt during his friend's wedding. Patient stated that he did not take all of his medications during the trip, only taking the fast-acting ones. Associated sx: frequent nightmares. PMHx anxiety. - History Of Current Complaint Chief Complaint: EDMentalHealth Time Seen by Provider: 12/18/16 04:07 Hx Obtained From: Patient Onset/Duration: Gradual Onset, Lasting Days Character: Anxious Aggravating Factor(s): Recent Stress - Friend's wedding, Medication Non- compliance - Didn't take all of his medications while he was away - Allergies/Home Medications Allergies/Adverse Reactions: Allergies Allergy/AdvReac Type Severity Reaction Status Date / Time Cefaclor [From [facility]] Allergy Unknown Unknown Verified 10/14/16 22:25 Reaction Details Sulfa Antibiotics Allergy Unknown Unknown Verified 10/14/16 22:25 Reaction Details PMH/Surg Hx/FS Hx/Imm Hx Previously Healthy: No Endocrine/Hematology History: Denies: Hx Anticoagulant Therapy, Hx Diabetes, Hx Thyroid Disease Cardiovascular History: Denies: Hx Congestive Heart Failure, Hx Deep Vein Thrombosis, Hx Hypertension , Hx Myocardial Infarction, Hx Pacemaker/ICD Respiratory History: Denies: Hx Asthma, Hx Chronic Obstructive Pulmonary Disease (COPD), Hx Lung Cancer, Hx Pneumonia, Hx Pulmonary Embolism GI History: Reports: Hx Gastroesophageal Reflux Disease Denies: Hx Gall Bladder Disease, Hx Gastrointestinal Bleed, Hx Ulcer, Hx Urosepsis History: Denies: Hx Dialysis, Hx Kidney Stones, Hx Renal Disease Neurological History: Reports: Other Neuro Impairments/Disorders - hx of childhood febrile seizures Denies: Hx Dementia, Hx Migraine, Hx Seizures, Hx Transient Ischemic Attacks (TIA) Psychiatric History: Reports: Hx Anxiety Denies: Hx Depression, Hx Schizophrenia, Hx Bipolar Disorder - Immunization History Date of Tetanus Vaccine: utd Date of Influenza Vaccine: none Infectious Disease History: No Infectious Disease History: Denies: Hx Clostridium Difficile, Hx Hepatitis, Hx Human Immunodeficiency Virus (HIV), Hx of Known/Suspected MRSA, Hx Shingles, Hx Tuberculosis, Hx Known/ Suspected VRE, Hx Known/Suspected VRSA, History Other Infectious Disease, Traveled Outside the [place] in Last 30 Days - Family History Known Family History: Positive: Hypertension, Other - Anxiety Negative: Cardiac Disease, Diabetes, Renal Disease - Social History Alcohol Use: None Hx Substance Use: No Substance Use Type: Reports: None Hx Tobacco Use: Yes Smoking Status (MU): Former Smoker Type: Smokeless Tobacco Have You Smoked in the Last Year: No Review of Systems Constitutional: Negative Eyes: Negative ENT: Negative Cardiovascular: Negative Respiratory: Negative Gastrointestinal: Negative Genitourinary: Negative Musculoskeletal: Negative Skin: Negative Neurological: Negative Psychological: Other - Panic attacks Positive: Anxious, Other - Frequent nightmares All Other Systems Reviewed And Are Negative: Yes Physical Exam Triage Information Reviewed: Yes Vital Signs On Initial Exam: Initial Vitals Temp 97.6 F 12/18/16 04:00 Vital Signs Reviewed: Yes Appearance: Positive: Well-Appearing, No Pain Distress Skin: Positive: Warm Head/Face: Positive: Normal Head/Face Inspection Eyes: Positive: SHIN ENT: Positive: Hearing grossly normal Neck: Positive: Supple Respiratory/Lung Sounds: Positive: Clear to Auscultation, Breath Sounds Present Cardiovascular: Positive: RRR Abdomen Description: Positive: Nontender, Soft Bowel Sounds: Positive: Present Musculoskeletal: Positive: Strength/ROM Intact Neurological: Positive: Alert, Oriented to Person Place, Time Psychiatric: Positive: Anxious - [place] Coma Scale Coma Scale Total: 15 Diagnostics - Vital Signs Vital Signs Temp Pulse Resp BP Pulse Ox 12/18/16 04:03 97.6 F 84 16 122/73 98 12/18/16 04:00 97.6 F - Laboratory Result Diagrams: 12/18/16 04:35 12/18/16 04:35 Lab Statement: Any lab studies that have been ordered have been reviewed, and results considered in the medical decision making process. Course/Dx - Course Assessment/Plan: Patient is medically cleared by Dr. Jerson Ovalle at 06:00 for MHU Evaluation. - Differential Dx/Clinical Impression Provider Diagnosis: Anxiety Discharge - Discharge Plan Condition: Stable Disposition: OTHER Discharge Disposition Comment: Sign out to Dr. Chris. Awaiting MHU evaluation. Referrals: Frank Reich MD [Primary Care Provider] - The documentation as recorded by the Zohreh fischer Edward accurately reflects the service I personally performed and the decisions made by me, Jerson Ovalle MD.
[2016-12-18 04:55] LABS: Hematocrit 42 % (42-52); Hemoglobin 14.2 g/dl (14.0-18.0); Mean Corpuscular HGB Conc 34 g/dl (31-36); Mean Corpuscular Hemoglobin 28 pg (27-31); Mean Corpuscular Volume 81 fL (80-94); Mean Platelet Volume 8 um3 (7.4-10.4); Red Blood Count 5.17 10^6/ul (4.0-5.4); Red Cell Distribution Width 14 % (10.5-15); White Blood Count 4.5 10^3/ul (3.5-10.8)
[2016-12-18 05:15] LABS: ALT 18 U/L (7-52); AST 12 U/L (13-39); Albumin 4.1 g/dL (3.2-5.2); Alkaline Phosphatase 50 U/L (34-104); Anion Gap 4 mmol/L (2-11); BUN/Creatinine Ratio 18.3 (8-20); Blood Urea Nitrogen 19 mg/dL (6-24); CO2 Carbon Dioxide 25 mmol/L (22-32); Calcium 9.2 mg/dL (8.6-10.3); Chloride 108 mmol/L (101-111); EGFR African American 111.9 (>60); Globulin 2.6 g/dL (2-4); Glucose 101 mg/dL (70-100); Potassium 3.8 mmol/L (3.5-5.0); Sodium 137 mmol/L (133-145); Total Protein 6.7 g/dL (6.4-8.9)
[2016-12-18 05:22] LABS: Acetaminophen < 15 mcg/mL; Alcohol < 10 mg/dL (<10); Salicylate < 2.50 mg/dL (<30)
[2016-12-18 05:33] LABS: TSH (Thyroid Stimulating Horm) 3.25 mcIU/mL (0.34-5.60)
[2016-12-18 09:21] VITALS: BP 110/75
== END 2016-12-18 09:21 ==
LOC: ED 03:57
DX: F41.9 Anxiety disorder, unspecified (principal); Z87.891 Personal history of nicotine dependence
CPT/HCPCS: 36415; 80053; 80320; 80329; 84443; 85025; 99284; G0480

== ENCOUNTER 2017-01-10 16:21 | Emergency (ER) | payer OTHER ==
[2017-01-10] MEDS ORDERED: Aspirin Low Dose CHEW TAB* 81 MG PO ONE (16:32)
--- NOTE | 2017-01-10 17:01 | RAD ---
HISTORY: Chest pain COMPARISONS: August 22, 2015 VIEWS:1: Single frontal portable view of the chest at 4:54 PM FINDINGS: LINES AND TUBES: None. CARDIOMEDIASTINAL SILHOUETTE: The cardiomediastinal silhouette is normal for portable technique. PLEURA: The costophrenic angles are sharp. No pleural abnormalities are noted. LUNG PARENCHYMA: The lungs are clear. ABDOMEN: The upper abdomen is clear. There is no subphrenic gas. BONES AND SOFT TISSUES: No bone or soft tissue abnormalities are noted. IMPRESSION: NO ACTIVE CARDIOPULMONARY DISEASE.
[2017-01-10 17:10] LABS: Hematocrit 48 % (42-52); Hemoglobin 16.3 g/dl (14.0-18.0); Mean Corpuscular HGB Conc 34 g/dl (31-36); Mean Corpuscular Hemoglobin 27 pg (27-31); Mean Corpuscular Volume 81 fL (80-94); Mean Platelet Volume 7 um3 (7.4-10.4); Red Blood Count 5.96 10^6/ul (4.0-5.4); Red Cell Distribution Width 14 % (10.5-15); White Blood Count 7.1 10^3/ul (3.5-10.8)
[2017-01-10 17:26] LABS: Albumin 4.6 g/dL (3.2-5.2); BUN/Creatinine Ratio 17.6 (8-20); Calcium 9.9 mg/dL (8.6-10.3); EGFR African American 107.1 (>60); EGFR Non-African American 83.3 (>60); Globulin 3.2 g/dL (2-4); Potassium 3.7 mmol/L (3.5-5.0); Total Bilirubin 0.5 mg/dL (0.2-1.0); Total Protein 7.8 g/dL (6.4-8.9)
[2017-01-10] MEDS ORDERED: Famotidine TAB* 20 MG PO ONE (17:31)
[2017-01-10 18:18] LABS: TSH (Thyroid Stimulating Horm) 3.08 mcIU/mL (0.34-5.60)
--- NOTE | 2017-01-10 18:55 | ED ---
Jasen Licona Alfonso, scribed for Raúl Oneil MD on 01/10/17 at 1647 . HPI Chest Pain - HPI Summary HPI Summary: This patient is a 26 year old M presenting to [facility] accompanied by mother with a chief complaint of diffuse CP since earlier today. Pt states anxiety is killing me. The CC is described as sharp. Pt rates the pain 2/10 in severity. Symptoms aggravated by anxiety and alleviated by nothing. Pt reports anxiety and refluxing acid that just comes up. He states he took his prescribed medication today. PMHx of anxiety and GERD. - History of Current Complaint Chief Complaint: EDChestPainROMI Time Seen by Provider: 01/10/17 16:31 Hx Obtained From: Patient Onset/Duration: Started Hours Ago - Earlier today, Still Present Timing: Constant Initial Severity: Mild Current Severity: Mild Pain Intensity: 2 Pain Scale Used: 0-10 Numeric Chest Pain Location: Diffuse Character: Sharp/Stabbing Aggravating Factor(s): Other: - Anxiety Alleviating Factor(s): Nothing Associated Signs and Symptoms: Positive: Other: - Positive anxiety and "refluxing acid that just comes up" - Allergy/Home Medications Allergies/Adverse Reactions: Allergies Allergy/AdvReac Type Severity Reaction Status Date / Time Cefaclor [From [facility]] Allergy Unknown Unknown Verified 10/14/16 22:25 Reaction Details Sulfa Antibiotics Allergy Unknown Unknown Verified 10/14/16 22:25 Reaction Details PMH/Surg Hx/FS Hx/Imm Hx Endocrine/Hematology History: Denies: Hx Anticoagulant Therapy, Hx Diabetes, Hx Thyroid Disease Cardiovascular History: Denies: Hx Congestive Heart Failure, Hx Deep Vein Thrombosis, Hx Hypertension , Hx Myocardial Infarction, Hx Pacemaker/ICD Respiratory History: Denies: Hx Asthma, Hx Chronic Obstructive Pulmonary Disease (COPD), Hx Lung Cancer, Hx Pneumonia, Hx Pulmonary Embolism GI History: Reports: Hx Gastroesophageal Reflux Disease Denies: Hx Gall Bladder Disease, Hx Gastrointestinal Bleed, Hx Ulcer, Hx Urosepsis History: Denies: Hx Dialysis, Hx Kidney Stones, Hx Renal Disease Neurological History: Reports: Other Neuro Impairments/Disorders - hx of childhood febrile seizures Denies: Hx Dementia, Hx Migraine, Hx Seizures, Hx Transient Ischemic Attacks (TIA) Psychiatric History: Reports: Hx Anxiety Denies: Hx Eating Disorder, Hx Depression, Hx Schizophrenia, Hx Bipolar Disorder - Immunization History Date of Tetanus Vaccine: utd Date of Influenza Vaccine: none Infectious Disease History: No Infectious Disease History: Denies: Hx Clostridium Difficile, Hx Hepatitis, Hx Human Immunodeficiency Virus (HIV), Hx of Known/Suspected MRSA, Hx Shingles, Hx Tuberculosis, Hx Known/ Suspected VRE, Hx Known/Suspected VRSA, History Other Infectious Disease, Traveled Outside the [place] in Last 30 Days - Family History Known Family History: Positive: Hypertension, Other - Anxiety Negative: Cardiac Disease, Diabetes, Renal Disease - Social History Alcohol Use: None Hx Substance Use: No Substance Use Type: Reports: None Hx Tobacco Use: Yes Smoking Status (MU): Former Smoker Type: Smokeless Tobacco Have You Smoked in the Last Year: No Review of Systems Positive: Chest Pain - Sharp diffuse Positive: Other - Positive refluxing acid that just comes up. Positive: Anxious All Other Systems Reviewed And Are Negative: Yes Physical Exam - Summary Physical Exam Summary: VITAL SIGNS: Reviewed. GENERAL: Patient is a well-developed and nourished male who is lying comfortable in the stretcher. Patient is not in any acute respiratory distress. HEAD AND FACE: No signs of trauma. No ecchymosis, hematomas or skull depressions. No sinus tenderness. EYES: PERRLA, EOMI x 2, No injected conjunctiva, no nystagmus. EARS: Hearing grossly intact. Ear canals and tympanic membranes are within normal limits. MOUTH: Oropharynx within normal limits. NECK: Supple, trachea is midline, no adenopathy, no JVD, no carotid bruit, no c- spine tenderness, neck with full ROM. CHEST: Symmetric, no tenderness at palpation LUNGS: Clear to auscultation bilaterally. No wheezing or crackles. CVS: Regular rate and rhythm, S1 and S2 present, no murmurs or gallops appreciated. ABDOMEN: Soft, non-tender. No signs of distention. No rebound no guarding, and no masses palpated. Bowel sounds are normal. EXTREMITIES: FROM in all major joints, no edema, no cyanosis or clubbing. NEURO: Alert and oriented x 3. No acute neurological deficits. Speech is normal and follows commands. SKIN: Dry and warm Triage Information Reviewed: Yes Vital Signs On Initial Exam: Initial Vitals Temp Pulse Resp BP Pulse Ox 98.2 F 98 20 141/93 98 01/10/17 16:24 07/19/17 16:24 01/10/17 16:24 01/10/17 16:24 01/10/17 16:24 Vital Signs Reviewed: Yes - [place] Coma Scale Coma Scale Total: 15 Diagnostics - Vital Signs Vital Signs Temp Pulse Resp BP Pulse Ox 01/10/17 16:31 98.2 F 98 16 141/93 98 01/10/17 16:24 98.2 F 98 20 141/93 98 - Laboratory Lab Results: Lab Results 01/10/17 01/10/17 01/10/17 Range/Units 16:59 16:59 16:59 WBC 7.1 (3.5-10.8) 10^3/ul RBC 5.96 H (4.0-5.4) 10^6/ul Hgb 16.3 (14.0-18.0) g/dl Hct 48 (42-52) % MCV 81 (80-94) fL MCH 27 (27-31) pg MCHC 34 (31-36) g/dl RDW 14 (10.5-15) % Plt Count 263 (150-450) 10^3/ul MPV 7 L (7.4-10.4) um3 Neut % (Auto) 56.5 (38-83) % Lymph % (Auto) 36.3 (25-47) % [place] % (Auto) 5.7 (1-9) % Eos % (Auto) 0.9 (0-6) % Baso % (Auto) 0.6 (0-2) % Absolute Neuts (auto) 4.0 (1.5-7.7) 10^3/ul Absolute Lymphs (auto) 2.6 (1.0-4.8) 10^3/ul Absolute Monos (auto) 0.4 (0-0.8) 10^3/ul Absolute Eos (auto) 0.1 (0-0.6) 10^3/ul Absolute Basos (auto) 0 (0-0.2) 10^3/ul Absolute Nucleated RBC 0.01 10^3/ul Nucleated RBC % 0.1 Sodium 135 (133-145) mmol/L Potassium 3.7 (3.5-5.0) mmol/L Chloride 104 (101-111) mmol/L Carbon Dioxide 24 (22-32) mmol/L Anion Gap 7 (2-11) mmol/L BUN 19 (6-24) mg/dL Creatinine 1.08 (0.67-1.17) mg/dL Est GFR ( Amer) 107.1 (>60) Est GFR (Non-Af Amer) 83.3 (>60) BUN/Creatinine Ratio 17.6 (8-20) Glucose 90 (70-100) mg/dL Lactic Acid 0.9 (0.5-2.0) mmol/L Calcium 9.9 (8.6-10.3) mg/dL Magnesium 2.0 (1.9-2.7) mg/dL Total Bilirubin 0.50 (0.2-1.0) mg/dL AST 14 (13-39) U/L ALT 14 (7-52) U/L Alkaline Phosphatase 56 (34-104) U/L Total Creatine Kinase 81 (10-223) U/L CK-MB (CK-2) 1.3 (0.6-6.3) ng/mL Troponin I 0.00 (<0.04) ng/mL B-Natriuretic Peptide ( - 100) pg/mL Total Protein 7.8 (6.4-8.9) g/dL Albumin 4.6 (3.2-5.2) g/dL Globulin 3.2 (2-4) g/dL Albumin/Globulin Ratio 1.4 (1-3) TSH 3.08 (0.34-5.60) mcIU/mL 01/10/17 Range/Units 16:59 WBC (3.5-10.8) 10^3/ul RBC (4.0-5.4) 10^6/ul Hgb (14.0-18.0) g/dl Hct (42-52) % MCV (80-94) fL MCH (27-31) pg MCHC (31-36) g/dl RDW (10.5-15) % Plt Count (150-450) 10^3/ul MPV (7.4-10.4) um3 Neut % (Auto) (38-83) % Lymph % (Auto) (25-47) % [place] % (Auto) (1-9) % Eos % (Auto) (0-6) % Baso % (Auto) (0-2) % Absolute Neuts (auto) (1.5-7.7) 10^3/ul Absolute Lymphs (auto) (1.0-4.8) 10^3/ul Absolute Monos (auto) (0-0.8) 10^3/ul Absolute Eos (auto) (0-0.6) 10^3/ul Absolute Basos (auto) (0-0.2) 10^3/ul Absolute Nucleated RBC 10^3/ul Nucleated RBC % Sodium (133-145) mmol/L Potassium (3.5-5.0) mmol/L Chloride (101-111) mmol/L Carbon Dioxide (22-32) mmol/L Anion Gap (2-11) mmol/L BUN (6-24) mg/dL Creatinine (0.67-1.17) mg/dL Est GFR ( Amer) (>60) Est GFR (Non-Af Amer) (>60) BUN/Creatinine Ratio (8-20) Glucose (70-100) mg/dL Lactic Acid (0.5-2.0) mmol/L Calcium (8.6-10.3) mg/dL Magnesium (1.9-2.7) mg/dL Total Bilirubin (0.2-1.0) mg/dL AST (13-39) U/L ALT (7-52) U/L Alkaline Phosphatase (34-104) U/L Total Creatine Kinase (10-223) U/L CK-MB (CK-2) (0.6-6.3) ng/mL Troponin I (<0.04) ng/mL B-Natriuretic Peptide 15 ( - 100) pg/mL Total Protein (6.4-8.9) g/dL Albumin (3.2-5.2) g/dL Globulin (2-4) g/dL Albumin/Globulin Ratio (1-3) TSH (0.34-5.60) mcIU/mL Result Diagrams: 01/10/17 16:59 01/10/17 16:59 Lab Statement: Any lab studies that have been ordered have been reviewed, and results considered in the medical decision making process. - Radiology CXR Radiology Interpretation Completed By: Radiologist - NO ACTIVE CARDIOPULMONARY DISEASE. - EKG 1636 Cardiac Rate: NL - BPM 82 EKG Rhythm: Sinus Rhythm EKG Interpretation: No ST elevation Re-Evaluation - Re-Evaluation First Eval Re-Evaluation Time: 18:21 Change: Improved Comment: Pt is feeling a lot better and anxiety is no longer present. Chest Pain Course/Dx - Course Course Of Treatment: This patient is a 26 year old M presenting to [facility] accompanied by mother with a chief complaint of diffuse CP since earlier today. Pt states anxiety is killing me. The CC is described as sharp. Pt rates the pain 2/10 in severity. Symptoms aggravated by anxiety and alleviated by nothing. Pt reports anxiety and refluxing acid that just comes up. He states he took his prescribed medication today. PMHx of anxiety and GERD. Assessment/Plan: Blood tests without any significant abnormalities. Troponin of 0.00. CXR negative for acute pathology. I do not believe the patient has acute coronary syndrome because the patient does not have any comorbidities. I have low suspicion for PE because the patient is neither tachycardic nor hypoxic. I believe the symptoms are secondary to anxiety and may be a component of GERD. In the ED he was given Pepcid and has remained stable. I discussed findings and tests results with the patient and mother. He will be discharged home with PCP follow up. Patient is hemodynamically stable and A&Ox3. - Chest Pain Differential Diagnosis/HQI/PQRI: Angina, Chest Wall, Lower Respiratory Infection - Diagnoses Provider Diagnoses: Chest pain, Anxiety Discharge - Discharge Plan Condition: Stable Disposition: HOME Patient Education Materials: Anxiety (ED), Chest Pain (ED) Referrals: Frank Reich MD [Primary Care Provider] - 3 Days The documentation as recorded by the Jasen fischer Alfonso accurately reflects the service I personally performed and the decisions made by me, Raúl Oneil MD.
[2017-01-10 19:08] VITALS: BP 118/75
== END 2017-01-10 19:08 | disposition home or self-care (01) ==
LOC: ED 16:21
DX: R07.89 Other chest pain (principal); F41.9 Anxiety disorder, unspecified; K21.9 Gastro-esophageal reflux disease without esophagitis; Z88.1 Allergy status to other antibiotic agents; Z88.2 Allergy status to sulfonamides; Z87.891 Personal history of nicotine dependence
CPT/HCPCS: 36415; 71010; 80053; 82550; 82553; 83605; 83735; 83880; 84443; 84484; 85025; 93005; 99283; A9270-GY

== ENCOUNTER 2017-02-04 15:02 | Emergency (ER) | payer OTHER ==
[2017-02-04 15:11] VITALS: BP 153/76
--- NOTE | 2017-02-04 16:14 | UC ---
Jasen Licona Alfonso, scribed for Rico Chris MD on 02/04/17 at 1546 . General HPI - HPI Summary HPI Summary: This patient is a 27 year old M presenting to [facility] accompanied by mother with a chief complaint of panic attacks since 3 days ago. The patient rates the pain 0/ 10 in severity. Symptoms aggravated and alleviated by nothing. Patient reports feeling bloated, decreased bowels, SOB, nausea, chills, nasal congestion, post nasal drip, tiredness, weakness at the knees, lightheadedness, and crying. Patient denies SI, HI, and hallucinations. PMHx of anxiety and chronic nasal congestion. - History of Current Complaint Chief Complaint: UCGeneralIllness Stated Complaint: WEAKNESS Time Seen by Provider: 02/04/17 15:19 Hx Obtained From: Patient Onset/Duration: Sudden Onset, Lasting Days - 3, Still Present Timing: Constant Onset Severity: Moderate Current Severity: Moderate Pain Intensity: 0 Character: panic attacks / anxiety Aggravating: nothing Alleviating: nothing Associated Signs & Symptoms: Positive: Other - Patient reports feeling bloated, decreased bowel, SOB, nausea, chills, nasal congestion, post nasal drip, tiredness, weakness at the knees, lightheadedness, and crying. Patient denies SI , HI, and hallucinations. - Allergy/Home Medications Allergies/Adverse Reactions: Allergies Allergy/AdvReac Type Severity Reaction Status Date / Time Cefaclor [From [facility]] Allergy Unknown Unknown Verified 10/14/16 22:25 Reaction Details Sulfa Antibiotics Allergy Unknown Unknown Verified 10/14/16 22:25 Reaction Details Home Medications: Home Medications Famotidine [Pepcid] 40 mg PO 02/04/17 [History] PMH/Surg Hx/FS Hx/Imm Hx Other Respiratory History: chronic nasal congestion. Psychological History: Anxiety Other History Of: Negative For: HIV, Hepatitis B, Hepatitis C, Anticoagulant Therapy - Surgical History Surgical History: None - Family History Known Family History: Positive: Hypertension, Other - Anxiety Negative: Cardiac Disease, Diabetes, Renal Disease - Social History Alcohol Use: None Substance Use Type: None Smoking Status (MU): Former Smoker Type: Smokeless Tobacco Have You Smoked in the Last Year: No Household Exposure Type: Cigarettes Review of Systems Constitutional: Chills ENT: Other - Positive nasal congestion, post nasal drip Respiratory: Shortness Of Breath Gastrointestinal: Nausea, Other - positive feeling bloated, decreased bowels Psychological: Other - Positive panic attacks, tiredness, weakness at the knees , lightheadedness, and crying; negative SI, HI, and hallucinations All Other Systems Reviewed And Are Negative: Yes Physical Exam Triage Information Reviewed: Yes Appearance: Well-Appearing, No Pain Distress Vital Signs: Initial Vital Signs Temp 98.2 F 02/04/17 15:08 Pulse 93 02/04/17 15:08 Resp 18 02/04/17 15:08 BP 153/76 02/04/17 15:08 Pulse Ox 100 02/04/17 15:08 Vital Signs Reviewed: Yes ENT: Positive: Normal ENT inspection Neck: Positive: Supple, Nontender Respiratory: Positive: Other: - CTA, breath sounds present Cardiovascular: Positive: RRR Abdomen Description: Positive: Nontender, Soft Bowel Sounds: Positive: Present Musculoskeletal: Positive: Strength Intact, ROM Intact Neurological: Positive: Other: - normal, sensory/motor intact, A&O x3 Psychological: Positive: Other: - Anxiety Skin: Positive: Other - warm, color reflects adequate perfusion, dry Course/Dx - Course Course Of Treatment: MEDICATIONS REVIEWED. PATIENT FELT MORE RELAXED AFTER DISCUSSION. DISCUSSED SEEING HIS PSYCHIATRIST AND COUNSELOR TOMORROW. PATIENT WILL DO THAT. HE HAS AN APPOINTMENT TOMORROW. - Differential Dx - Multi-Symptom Provider Diagnoses: ANXIETY, SINUSITIS, WEAKNESS, HYPERTENTION Discharge - Discharge Plan Condition: Stable Disposition: HOME Prescriptions: Amoxicillin/Clavulanate TAB* [Augmentin TAB 875*] 875 mg PO BID #20 tab Patient Education Materials: Sinusitis (ED), Weakness (ED), Hypertension (ED), Anxiety (ED) Referrals: Frank Reich MD [Primary Care Provider] - 3 Days Additional Instructions: FOLLOW UP WITH YOUR PRIMARY CARE PROVIDER FOR HIGH BLOOD PRESSURE NOTED TODAY AT 153/76. FOLLOW UP WITH YOUR DOCTOR. GO TO THE EMERGENCY DEPARTMENT FOR ANY WORSENING OF YOUR CONDITION OR QUESTIONS OR CONCERNS. The documentation as recorded by the Jasen fischer Alfonso accurately reflects the service I personally performed and the decisions made by me, Rico Chris MD.
== END 2017-02-04 16:02 | disposition home or self-care (01) ==
LOC: UCEAST 15:02
DX: F41.9 Anxiety disorder, unspecified (principal); J32.9 Chronic sinusitis, unspecified; R53.1 Weakness; I10 Essential (primary) hypertension; Z88.1 Allergy status to other antibiotic agents; Z88.2 Allergy status to sulfonamides; Z87.891 Personal history of nicotine dependence
CPT/HCPCS: 99212; G0463

== ENCOUNTER 2017-02-26 14:36 | Emergency (ER) | payer OTHER ==
[2017-02-26 16:21] LABS: Urine Bilirubin Negative (Negative); Urine Glucose Negative (Negative); Urine Nitrite Negative (Negative)
[2017-02-26 16:35] LABS: Benzodiazepine Urine Screen None Detected (None Detect)
[2017-02-26 16:42] LABS: Hematocrit 44 % (42-52); Hemoglobin 15.2 g/dl (14.0-18.0); Mean Corpuscular HGB Conc 35 g/dl (31-36); Mean Corpuscular Hemoglobin 27 pg (27-31); Mean Corpuscular Volume 80 fL (80-94); Mean Platelet Volume 7 um3 (7.4-10.4); Red Blood Count 5.56 10^6/ul (4.0-5.4); Red Cell Distribution Width 13 % (10.5-15); White Blood Count 8.5 10^3/ul (3.5-10.8)
[2017-02-26 16:53] LABS: ALT 12 U/L (7-52); AST 13 U/L (13-39); Albumin 4.3 g/dL (3.2-5.2); Alkaline Phosphatase 53 U/L (34-104); Anion Gap 6 mmol/L (2-11); BUN/Creatinine Ratio 18.4 (8-20); Blood Urea Nitrogen 19 mg/dL (6-24); CO2 Carbon Dioxide 29 mmol/L (22-32); Calcium 9.4 mg/dL (8.6-10.3); Chloride 101 mmol/L (101-111); EGFR African American 112.3 (>60); EGFR Non-African American 87.3 (>60); Globulin 2.6 g/dL (2-4); Glucose 92 mg/dL (70-100); Potassium 3.6 mmol/L (3.5-5.0); Sodium 136 mmol/L (133-145); Total Protein 6.9 g/dL (6.4-8.9)
[2017-02-26 17:24] LABS: Acetaminophen < 15 mcg/mL; Alcohol < 10 mg/dL (<10); Salicylate < 2.50 mg/dL (<30)
[2017-02-26 17:31] VITALS: BP 124/79
[2017-02-26 17:34] LABS: TSH (Thyroid Stimulating Horm) 1.85 mcIU/mL (0.34-5.60)
--- NOTE | 2017-02-26 17:43 | RAD ---
INDICATION: Chest pain. Former tobacco use. Anxiety. COMPARISON: January 10, 2017 TECHNIQUE: Dual energy PA and routine lateral views of the chest were obtained. REPORT: Clear lungs and pleural spaces. Negative for pneumothorax. The heart, pulmonary vasculature, and mediastinal contours are unremarkable. Unremarkable osseous structures and soft tissue contours. IMPRESSION: No evidence for acute intrathoracic disease.
--- NOTE | 2017-02-26 18:16 | ED ---
Atul Licona Angela, scribed for Daniel Verdugo on 02/26/17 at 1617 . Psychiatric Complaint - HPI Summary HPI Summary: This pt is a 27 y/o male presenting to [facility] [place]/o anxiety since today. Pt reports he was putting away groceries when he began to feel shaky and he felt his heart racing. Pt notes he has a PMHx of anxiety. Pt endorses mild depression due to recent stress. He denies SI, HI, auditory or visual hallucinations. Pt states he was given a Z-pack and prednisone last week for an upper respiratory infection. He additionally complains of stiff jaw, chest pressure and neck pain radiating to his left arm. 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 Pt denies alcohol, tobacco or drug use. - History Of Current Complaint Chief Complaint: EDMentalHealth Time Seen by Provider: 02/26/17 15:57 Hx Obtained From: Patient, Family/Cut Pressman - mother Onset/Duration: Lasting Hours Aggravating Factor(s): Recent Stress Alleviating Factor(s): Nothing Associated Signs And Symptoms: Negative: Confused, Hallucinating, Paranoid Behavior, Sleep Disturbance, Appetite Change Has Suicidal: Denies: Thoughts, With A Plan Has Homicidal: Denies: Thoughts, With A Plan - Allergies/Home Medications Allergies/Adverse Reactions: Allergies Allergy/AdvReac Type Severity Reaction Status Date / Time Cefaclor [From [facility]] Allergy Unknown Unknown Verified 10/14/16 22:25 Reaction Details Sulfa Antibiotics Allergy Unknown Unknown Verified 10/14/16 22:25 Reaction Details PMH/Surg Hx/FS Hx/Imm Hx Endocrine/Hematology History: Denies: Hx Anticoagulant Therapy, Hx Diabetes, Hx Thyroid Disease Cardiovascular History: Denies: Hx Congestive Heart Failure, Hx Deep Vein Thrombosis, Hx Hypertension , Hx Myocardial Infarction, Hx Pacemaker/ICD Respiratory History: Denies: Hx Asthma, Hx Chronic Obstructive Pulmonary Disease (COPD), Hx Lung Cancer, Hx Pneumonia, Hx Pulmonary Embolism GI History: Reports: Hx Gastroesophageal Reflux Disease Denies: Hx Gall Bladder Disease, Hx Gastrointestinal Bleed, Hx Ulcer, Hx Urosepsis History: Denies: Hx Dialysis, Hx Kidney Stones, Hx Renal Disease Neurological History: Reports: Other Neuro Impairments/Disorders - hx of childhood febrile seizures Denies: Hx Dementia, Hx Migraine, Hx Seizures, Hx Transient Ischemic Attacks (TIA) Psychiatric History: Reports: Hx Anxiety Denies: Hx Eating Disorder, Hx Depression, Hx Schizophrenia, Hx Bipolar Disorder - Immunization History Date of Tetanus Vaccine: utd Date of Influenza Vaccine: none Infectious Disease History: Denies: Hx Clostridium Difficile, Hx Hepatitis, Hx Human Immunodeficiency Virus (HIV), Hx of Known/Suspected MRSA, Hx Shingles, Hx Tuberculosis, Hx Known/ Suspected VRE, Hx Known/Suspected VRSA, History Other Infectious Disease, Traveled Outside the [place] in Last 30 Days - Family History Known Family History: Positive: None, Hypertension, Other - Anxiety Negative: Cardiac Disease, Diabetes, Renal Disease - Social History Alcohol Use: None Hx Substance Use: No Substance Use Type: Reports: None Hx Tobacco Use: Yes Smoking Status (MU): Former Smoker Type: Smokeless Tobacco Have You Smoked in the Last Year: No Review of Systems Negative: Fever, Chills Positive: Chest Pain - chest pressure Negative: Shortness Of Breath Negative: Abdominal Pain Genitourinary: Negative Positive: Other - left sided neck pain, left arm pain Skin: Negative Neurological: Negative Positive: Anxious All Other Systems Reviewed And Are Negative: Yes Physical Exam Triage Information Reviewed: Yes Vital Signs On Initial Exam: Initial Vitals Temp Pulse Resp BP Pulse Ox 98 F 110 18 122/90 99 02/26/17 14:53 02/26/17 14:53 02/26/17 14:53 02/26/17 14:53 02/26/17 14:53 Vital Signs Reviewed: Yes Appearance: Positive: Well-Appearing, No Pain Distress Skin: Positive: Warm, Skin Color Reflects Adequate Perfusion, Dry Head/Face: Positive: Normal Head/Face Inspection Eyes: Positive: EOMI, SHIN ENT: Positive: Normal ENT inspection Neck: Positive: Supple, Nontender Respiratory/Lung Sounds: Positive: Clear to Auscultation, Breath Sounds Present Cardiovascular: Positive: RRR, Pulses are Symmetrical in both Upper and Lower Extremities Abdomen Description: Positive: Nontender, Soft Bowel Sounds: Positive: Present Musculoskeletal: Positive: Normal, Strength/ROM Intact Neurological: Positive: Normal, Sensory/Motor Intact, Alert, Oriented to Person Place, Time Psychiatric: Positive: Anxious Diagnostics - Vital Signs Vital Signs Temp Pulse Resp BP Pulse Ox 02/26/17 14:53 98 F 110 18 122/90 99 - Laboratory Result Diagrams: 02/26/17 16:22 02/26/17 16:22 Lab Statement: Any lab studies that have been ordered have been reviewed, and results considered in the medical decision making process. - Radiology Chest XR Xray Interpretation: No Acute Changes - IMPRESSION: No evidence for acute intrathoracic disease. ED physician has reviewed this radiology report and agrees. Radiology Interpretation Completed By: Radiologist Course/Dx - Course Assessment/Plan: This pt is a 27 y/o male with PMHx of anxiety presenting to [facility] c/o anxiety since today. Pt reports he was putting away groceries when he began to feel shaky and he felt his heart racing. Bloodwork, UA, tox screnn, and chest XR were obtained. UA and tox screen are both negative. Pt was medically cleared. Pt was evaluated by provider and cleared. He will be discharged home and is instructed to follow up with his therapist tomorrow, as scheduled. - Differential Dx/Clinical Impression Provider Diagnosis: Anxiety Discharge - Discharge Plan Condition: Stable Disposition: HOME Referrals: [facility] [Outside] - 02/27/17 (Please keep your appointment you have with Amie.) Frank Reich MD [Primary Care Provider] - The documentation as recorded by the Atul fischer Angela accurately reflects the service I personally performed and the decisions made by , Daniel Verdugo.
== END 2017-02-26 18:47 | disposition home or self-care (01) ==
LOC: ED 14:36
DX: R07.9 Chest pain, unspecified (principal); F41.9 Anxiety disorder, unspecified; Z87.891 Personal history of nicotine dependence
CPT/HCPCS: 36415; 71020; 80053; 80307; 80320; 80329; 81003; 84443; 85025; 99283; G0480

== ENCOUNTER 2017-03-08 23:54 | Emergency (ER) | payer OTHER ==
[2017-03-08] MEDS ORDERED: Ondansetron INJ* 2 MG/ML VIAL IV ONE (23:55)
[2017-03-08] MEDS ORDERED: NS 0.9% 1000 ML* 1,000 ML IV ONE (23:55)
[2017-03-08] MEDS ORDERED: Meclizine TAB* 12.5 MG PO ONE (23:57)
[2017-03-09] MEDS ORDERED: Ondansetron ODT TAB* 4 MG SL ONE (00:14)
[2017-03-09] MEDS ORDERED: Acetaminophen TAB* 325 MG PO ONE (00:50)
--- NOTE | 2017-03-09 01:29 | ED ---
Headache - HPI Summary HPI Summary: Patient presents to the ED with CC of dizziness, anxiety, and APPIAH which began 1 hour prior to arrival and after 14 hours of playing video games. He states he is seen often in the ED for symptoms of anxiety related to his health. Patient will begin to feel something odd, and immediately feel that he is "dying." After getting examined, he states they never find anything. Patient admits to anxiety and likely this is d/t his anxiety as well. 1 hour prior to arrival, he states he stood up from playing video games for 14 hours and immediately felt dizzy. He notes to not drinking fluids all day or taking his at home medications. Immediately upon feeling dizzy, he states his heart began to race , which is common with his anxiety symptoms and he called the ambulance. On arrival, he remains with anxiety symptoms with mild nausea and mild dizziness and 2/10 posterior APPIAH. - History Of Current Complaint Chief Complaint: EDDizziness Stated Complaint: ANXIETY/DIZZY Time Seen by Provider: 03/08/17 23:55 Hx Obtained From: Patient Initially Headache Was: Initial Pain Scale(0-10)= - 2 Currently Pain Is: Current Pain Scale(0-10)= - 2, Mild Timing: Constant Character: Dull Location of Headache: Occipital Radiates to: orbital Aggravating Factor: Position Change Allevating Factors: Nothing - Risk Factors SAH Risk Factors: Negative - Allergies/Home Medications Allergies/Adverse Reactions: Allergies Allergy/AdvReac Type Severity Reaction Status Date / Time Cefaclor [From [facility]] Allergy Unknown Unknown Verified 10/14/16 22:25 Reaction Details Sulfa Antibiotics Allergy Unknown Unknown Verified 10/14/16 22:25 Reaction Details PMH/Surg Hx/FS Hx/Imm Hx Previously Healthy: Yes Endocrine/Hematology History: Denies: Hx Anticoagulant Therapy, Hx Diabetes, Hx Thyroid Disease Cardiovascular History: Denies: Hx Congestive Heart Failure, Hx Deep Vein Thrombosis, Hx Hypertension , Hx Myocardial Infarction, Hx Pacemaker/ICD Respiratory History: Denies: Hx Asthma, Hx Chronic Obstructive Pulmonary Disease (COPD), Hx Lung Cancer, Hx Pneumonia, Hx Pulmonary Embolism GI History: Reports: Hx Gastroesophageal Reflux Disease Denies: Hx Gall Bladder Disease, Hx Gastrointestinal Bleed, Hx Ulcer, Hx Urosepsis History: Denies: Hx Dialysis, Hx Kidney Stones, Hx Renal Disease Neurological History: Reports: Other Neuro Impairments/Disorders - hx of childhood febrile seizures Denies: Hx Dementia, Hx Migraine, Hx Seizures, Hx Transient Ischemic Attacks (TIA) Psychiatric History: Reports: Hx Anxiety Denies: Hx Eating Disorder, Hx Depression, Hx Schizophrenia, Hx Bipolar Disorder, Hx of Violent Episodes Against Others - Immunization History Date of Tetanus Vaccine: utd Date of Influenza Vaccine: none Hx Pertussis Vaccination: No Immunizations Up to Date: Unable to Obtain/Confirm Infectious Disease History: No Infectious Disease History: Denies: Hx Clostridium Difficile, Hx Hepatitis, Hx Human Immunodeficiency Virus (HIV), Hx of Known/Suspected MRSA, Hx Shingles, Hx Tuberculosis, Hx Known/ Suspected VRE, Hx Known/Suspected VRSA, History Other Infectious Disease, Traveled Outside the [place] in Last 30 Days - Family History Known Family History: Positive: None, Hypertension, Other - Anxiety Negative: Cardiac Disease, Diabetes, Renal Disease - Social History Occupation: Unemployed Lives: With Family Alcohol Use: None Hx Substance Use: No Substance Use Type: Reports: None Hx Tobacco Use: Yes Smoking Status (MU): Former Smoker Type: Smokeless Tobacco Have You Smoked in the Last Year: No Review of Systems Positive: Fatigue, Skin Diaphoresis. Negative: Fever, Chills Eyes: Negative Negative: Photophobia, Blurred Vision, Diplopia Positive: Palpitations. Negative: Chest Pain Negative: Shortness Of Breath, Cough Positive: Nausea Positive: no symptoms reported, see HPI Negative: Arthralgia Positive: Headache Positive: Anxious All Other Systems Reviewed And Are Negative: Yes Physical Exam Triage Information Reviewed: Yes Vital Signs On Initial Exam: Initial Vitals Temp Pulse Resp BP Pulse Ox 97.3 F 110 18 137/89 98 03/08/17 23:56 03/08/17 23:56 03/08/17 23:56 03/08/17 23:56 03/08/17 23:56 Vital Signs Reviewed: Yes Appearance: Positive: Well-Appearing, Well-Nourished Skin: Positive: Warm, Skin Color Reflects Adequate Perfusion Head/Face: Positive: Normal Head/Face Inspection Eyes: Positive: EOMI, SHIN, Conjunctiva Clear Neck: Positive: Supple, No Lymphadenopathy Respiratory/Lung Sounds: Positive: Clear to Auscultation, Breath Sounds Present Cardiovascular: Positive: Normal, RRR, Pulses are Symmetrical in both Upper and Lower Extremities Musculoskeletal: Positive: Normal, Strength/ROM Intact Neurological: Positive: Alert, Oriented to Person Place, Time, Speech Normal Psychiatric: Positive: Anxious AVPU Assessment: Alert - Jayna Coma Scale Coma Scale Total: 15 Diagnostics - Vital Signs Vital Signs Temp Pulse Resp BP Pulse Ox 03/08/17 23:56 97.3 F 110 18 137/89 98 - Laboratory Lab Statement: Any lab studies that have been ordered have been reviewed, and results considered in the medical decision making process. Headache Course/Dx - Course Course Of Treatment: Patient given meclizine, zofran and tylenol with effect. Discussed treatment options with patient as well as anxiety triggers and symptoms. He is feeling better after medications and states his anxiety triggers physical symptoms. He has a history of high anxiety over his health and continually seen by the ED and outpatient physicians for these physical symptoms. He did take .5 ativan at home without relief, but on arrival, he states the medication began to work and is feeling improved. He is OK for discharge and return precautions given. - Diagnoses Differential Diagnosis/HQI/PQRI: Other - anxiety, headache, dehydration Provider Diagnoses: Anxiety about health Discharge - Discharge Plan Condition: Stable Disposition: HOME Patient Education Materials: Anxiety (ED) Referrals: Frank Reich MD [Primary Care Provider] - Additional Instructions: Follow up with your PCP as needed Take your anxiety medications as prescribed Avoid triggers which will set off your anxiety such as video games, bright lights. Take walks to help with digestive symptoms When you begin to feel symptoms of anxiety, close your eyes and lie down Take all your at home medications as directed Drink plenty of water Take tylenol for any neck pain symptoms you may have
[2017-03-09 01:44] VITALS: BP 117/79
== END 2017-03-09 01:43 | disposition home or self-care (01) ==
LOC: ED 23:54
DX: R42 Dizziness and giddiness (principal); F41.9 Anxiety disorder, unspecified; R51 Headache; Z87.891 Personal history of nicotine dependence; R11.0 Nausea
CPT/HCPCS: 96374; 99282; A9270-GY

== ENCOUNTER 2017-05-16 14:49 | Emergency (ER) | payer OTHER ==
[2017-05-16] MEDS ORDERED: ALPRAZolam TAB* 0.5 MG PO ONE (16:22)
[2017-05-16] MEDS ORDERED: NS 0.9% 1000 ML* 1,000 ML IV ONE (16:22)
[2017-05-16] MEDS ORDERED: Pantoprazole IV* 40 MG IV ONE (16:22)
--- NOTE | 2017-05-16 16:53 | RAD ---
Indication: Chest pain. Single frontal view of the chest performed at 1637 hours was reviewed. Comparison is made with previous exam dated February 26, 2017. No mediastinal shift is noted. Heart is of normal size and configuration. Lung alatorre appear clear. IMPRESSION: NO ACTIVE CARDIOPULMONARY DISEASE IS NOTED.
[2017-05-16 17:02] LABS: Hematocrit 42 % (42-52); Hemoglobin 14.8 g/dl (14.0-18.0); Mean Corpuscular HGB Conc 35 g/dl (31-36); Mean Corpuscular Hemoglobin 28 pg (27-31); Mean Corpuscular Volume 79 fL (80-94); Mean Platelet Volume 7 um3 (7.4-10.4); Red Blood Count 5.35 10^6/ul (4.0-5.4); Red Cell Distribution Width 14 % (10.5-15); White Blood Count 4.7 10^3/ul (3.5-10.8)
[2017-05-16] MEDS: Venlafaxine EXT RELEASE CAP* 37.5 MG PO ONE (17:10)
[2017-05-16 17:14] LABS: Albumin 4.4 g/dL (3.2-5.2); BUN/Creatinine Ratio 12.7 (8-20); Calcium 9.4 mg/dL (8.6-10.3); EGFR African American 113.5 (>60); EGFR Non-African American 88.3 (>60); Globulin 2.5 g/dL (2-4); Potassium 3.4 mmol/L (3.5-5.0); Total Bilirubin 0.8 mg/dL (0.2-1.0); Total Protein 6.9 g/dL (6.4-8.9)
--- NOTE | 2017-05-16 18:02 | ED ---
Ciara Licona Gabriel, scribed for Ibis Kline MD on 05/16/17 at 1550 . Psychiatric Complaint - HPI Summary HPI Summary: This patient is a 27 year old M presenting to [facility] accompanied by grandmother with a chief complaint of increased anxiety for the last three days. He recently tapered off for Effexor for a month and has switched to Prozac and is experiencing withdrawal symptoms. The patient rates the pain 6/10 in severity. Symptoms aggravated by nothing. Symptoms alleviated by medication. Patient reports worry, anxiety, panic, chest discomfort, back aches, nausea, and trembling extremities. - History Of Current Complaint Chief Complaint: EDGeneral Time Seen by Provider: 05/16/17 15:12 Hx Obtained From: Patient, Family/Stock Analyst - grandmother Onset/Duration: Lasting Days - 3, Still Present Timing: Constant Character: Anxious Aggravating Factor(s): Nothing Alleviating Factor(s): Medication - Allergies/Home Medications Allergies/Adverse Reactions: Allergies Allergy/AdvReac Type Severity Reaction Status Date / Time Cefaclor [From Ceclor] Allergy Unknown Unknown Verified 10/14/16 22:25 Reaction Details Sulfa Antibiotics Allergy Unknown Unknown Verified 10/14/16 22:25 Reaction Details PMH/Surg Hx/FS Hx/Imm Hx Previously Healthy: No Endocrine/Hematology History: Denies: Hx Anticoagulant Therapy, Hx Diabetes, Hx Thyroid Disease Cardiovascular History: Denies: Hx Congestive Heart Failure, Hx Deep Vein Thrombosis, Hx Hypertension , Hx Myocardial Infarction, Hx Pacemaker/ICD Respiratory History: Denies: Hx Asthma, Hx Chronic Obstructive Pulmonary Disease (COPD), Hx Lung Cancer, Hx Pneumonia, Hx Pulmonary Embolism GI History: Reports: Hx Gastroesophageal Reflux Disease Denies: Hx Gall Bladder Disease, Hx Gastrointestinal Bleed, Hx Ulcer, Hx Urosepsis History: Denies: Hx Dialysis, Hx Kidney Stones, Hx Renal Disease Neurological History: Reports: Other Neuro Impairments/Disorders - hx of childhood febrile seizures Denies: Hx Dementia, Hx Migraine, Hx Seizures, Hx Transient Ischemic Attacks (TIA) Psychiatric History: Reports: Hx Anxiety Denies: Hx Eating Disorder, Hx Depression, Hx Schizophrenia, Hx Bipolar Disorder, Hx of Violent Episodes Against Others - Immunization History Date of Tetanus Vaccine: utd Date of Influenza Vaccine: none Infectious Disease History: No Infectious Disease History: Denies: Hx Clostridium Difficile, Hx Hepatitis, Hx Human Immunodeficiency Virus (HIV), Hx of Known/Suspected MRSA, Hx Shingles, Hx Tuberculosis, Hx Known/ Suspected VRE, Hx Known/Suspected VRSA, History Other Infectious Disease, Traveled Outside the [place] in Last 30 Days - Family History Known Family History: Positive: Hypertension, Other - Anxiety Negative: Cardiac Disease, Diabetes, Renal Disease - Social History Lives: With Family - fiance Alcohol Use: None Hx Substance Use: No Substance Use Type: Reports: None Hx Tobacco Use: Yes Smoking Status (MU): Former Smoker Type: Smokeless Tobacco Have You Smoked in the Last Year: No Review of Systems Positive: Other - chest discomfort Positive: Nausea Positive: Other - back aches Positive: Anxious - worry, anxiety, panic, Other - trembling extremities All Other Systems Reviewed And Are Negative: Yes Physical Exam - Summary Physical Exam Summary: General: Well appearing, no pain distress Skin: Warm, Skin Color Reflects Adequate Perfusion, Dry Eyes: EOMI, SHIN ENT: Pharynx normal, TMs normal Neck: Supple, nontender Respiratory: CTA, breath sounds present, no rhonchi, no wheezes, no rales Cardiovascular: RRR, no murmur, no rub, no gallop Abdomen: Soft, nontender, Non-distended, no guarding, no rebound Bowel: Present Musculoskeletal: NARAYAN, No edema Neuro: Sensory/motor intact, A&Ox3, CN intact 2-12 Psych: Affect/mood appropriate Triage Information Reviewed: Yes Vital Signs On Initial Exam: Initial Vitals Temp Pulse Resp BP Pulse Ox 97.5 F 88 16 138/93 99 05/16/17 14:51 05/16/17 14:51 05/16/17 14:51 05/16/17 14:51 05/16/17 14:51 Vital Signs Reviewed: Yes - [place] Coma Scale Coma Scale Total: 15 Diagnostics - Vital Signs Vital Signs Temp Pulse Resp BP Pulse Ox 05/16/17 14:51 97.5 F 88 16 138/93 99 - Laboratory Lab Results: Lab Results 05/16/17 05/16/17 Range/Units 16:50 16:50 WBC 4.7 (3.5-10.8) 10^3/ul RBC 5.35 (4.0-5.4) 10^6/ul Hgb 14.8 (14.0-18.0) g/dl Hct 42 (42-52) % MCV 79 L (80-94) fL MCH 28 (27-31) pg MCHC 35 (31-36) g/dl RDW 14 (10.5-15) % Plt Count 227 (150-450) 10^3/ul MPV 7 L (7.4-10.4) um3 Neut % (Auto) 59.9 (38-83) % Lymph % (Auto) 31.9 (25-47) % [place] % (Auto) 7.2 (1-9) % Eos % (Auto) 0.5 (0-6) % Baso % (Auto) 0.5 (0-2) % Absolute Neuts (auto) 2.8 (1.5-7.7) 10^3/ul Absolute Lymphs (auto) 1.5 (1.0-4.8) 10^3/ul Absolute Monos (auto) 0.3 (0-0.8) 10^3/ul Absolute Eos (auto) 0 (0-0.6) 10^3/ul Absolute Basos (auto) 0 (0-0.2) 10^3/ul Absolute Nucleated RBC 0 10^3/ul Nucleated RBC % 0 Sodium 136 (133-145) mmol/L Potassium 3.4 L (3.5-5.0) mmol/L Chloride 103 (101-111) mmol/L Carbon Dioxide 26 (22-32) mmol/L Anion Gap 7 (2-11) mmol/L BUN 13 (6-24) mg/dL Creatinine 1.02 (0.67-1.17) mg/dL Est GFR ( Amer) 113.5 (>60) Est GFR (Non-Af Amer) 88.3 (>60) BUN/Creatinine Ratio 12.7 (8-20) Glucose 99 (70-100) mg/dL Calcium 9.4 (8.6-10.3) mg/dL Total Bilirubin 0.80 (0.2-1.0) mg/dL AST 15 (13-39) U/L ALT 13 (7-52) U/L Alkaline Phosphatase 47 (34-104) U/L Troponin I 0.00 (<0.04) ng/mL Total Protein 6.9 (6.4-8.9) g/dL Albumin 4.4 (3.2-5.2) g/dL Globulin 2.5 (2-4) g/dL Albumin/Globulin Ratio 1.8 (1-3) Result Diagrams: 05/16/17 16:50 05/16/17 16:50 Lab Statement: Any lab studies that have been ordered have been reviewed, and results considered in the medical decision making process. - EKG 16:38 Cardiac Rate: NL EKG Rhythm: Sinus Rhythm - 73 BPM EKG Interpretation: no ST elevations Course/Dx - Course Course Of Treatment: 27 yo male who has been slowly weaning off of 300 mg of effexor and noted some issues once he got down to 37.5 with increased anxiety. He completely weaned himself off a few days ago and has been quite anxious with some chest pain and concerned about a previous dx of thoracic outlet syndrome. Labs and ekg and cxr were normal here pt will wean off of the effexor an even slower fashion - Differential Dx/Clinical Impression Provider Diagnosis: Anxiety, Chest pain Discharge - Discharge Plan Condition: Stable Disposition: HOME Patient Education Materials: Chest Pain (ED), Anxiety (ED) Referrals: Frank Reich MD [Primary Care Provider] - 3 Days Additional Instructions: RETURN TO THE EMERGENCY DEPARTMENT FOR CHANGING OR WORSENING SYMPTOMS. The documentation as recorded by the Ciara fischer Gabriel accurately reflects the service I personally performed and the decisions made by , Ibis Kline MD.
[2017-05-16 18:32] VITALS: BP 113/65
== END 2017-05-16 18:30 | disposition home or self-care (01) ==
LOC: ED 14:49
DX: R07.9 Chest pain, unspecified (principal); R11.0 Nausea; F41.9 Anxiety disorder, unspecified; Z87.891 Personal history of nicotine dependence
CPT/HCPCS: 36415; 71010; 80053; 84484; 85025; 93005; 96374; 99283; A9270-GY

== ENCOUNTER 2017-06-30 09:59 | Emergency (ER) | payer OTHER ==
[2017-06-30 10:13] VITALS: BP 119/80
--- NOTE | 2017-06-30 10:51 | UC ---
Lower Extremity/Ankle HPI - History of Current Complaint Chief Complaint: UCLowerExtremity Stated Complaint: sinus CONGESTION, AND TOE INJURY Time Seen by Provider: 06/30/17 10:42 Hx Obtained From: Patient Onset/Duration: Sudden Onset - "stubbed toe" on spring this am Severity Initially: Severe Severity Currently: Moderate Aggravating Factor(s): Standing, Ambulation Alleviating Factor(s): Rest, Elevation Able to Bear Weight: Yes - with pain - Allergies/Home Medications Allergies/Adverse Reactions: Allergies Allergy/AdvReac Type Severity Reaction Status Date / Time Cefaclor [From [facility]] Allergy Unknown Unknown Verified 06/30/17 10:09 Reaction Details Sulfa Antibiotics Allergy Unknown Unknown Verified 06/30/17 10:09 Reaction Details PMH/Surg Hx/FS Hx/Imm Hx Previously Healthy: Yes Psychological History: Anxiety Other History Of: Negative For: HIV, Hepatitis B, Hepatitis C, Anticoagulant Therapy - Surgical History Surgical History: None - Family History Known Family History: Positive: None, Hypertension, Other - Anxiety Negative: Cardiac Disease, Diabetes, Renal Disease - Social History Occupation: Unemployed Lives: With Family Alcohol Use: None Substance Use Type: None Smoking Status (MU): Former Smoker Type: Smokeless Tobacco Have You Smoked in the Last Year: No Household Exposure Type: Cigarettes Review of Systems Constitutional: Negative Skin: Bruising - R 5th toe ENT: Sinus Congestion - started 2 weeks ago and now blowing thick green phlegm, Sinus Pain/Tenderness Respiratory: Negative Cardiovascular: Negative Gastrointestinal: Negative Musculoskeletal: Decreased ROM - R 5th toe Neurological: Negative Psychological: Negative All Other Systems Reviewed And Are Negative: Yes Physical Exam Triage Information Reviewed: Yes Appearance: Well-Appearing, No Pain Distress, Well-Nourished Vital Signs: Initial Vital Signs Temp 98.9 F 06/30/17 10:10 Pulse 94 06/30/17 10:10 Resp 16 06/30/17 10:10 BP 119/80 06/30/17 10:10 Vital Signs Reviewed: Yes ENT: Positive: Nasal congestion, TMs normal, Sinus tenderness, Other - cobblestoning throat Neck exam: Normal Neck: Positive: Supple, Nontender, No Lymphadenopathy Respiratory Exam: Normal Respiratory: Positive: Lungs clear Cardiovascular Exam: Normal Cardiovascular: Positive: RRR Musculoskeletal: Positive: Edema @ - 5th R toe Psychological Exam: Normal Skin Exam: Normal Diagnostics - Radiology No fracture Xray Interpretation: No Acute Changes Lower Extremity Course/Dx - Differential Dx/Diagnosis Differential Diagnosis/HQI/PQRI: Fracture (Closed) - R 5th toe sinusitis viral illness Provider Diagnoses: contusion R 5th toe. sinusitis Discharge - Discharge Plan Condition: Good Disposition: HOME Prescriptions: Azithromycin TAB* [Zithromax TAB (Z-JASMYN) 250 mg #6 tabs] 2 tab PO .TODAY, THEN 1 DAILY #1 jasmyn Referrals: Frank Reich MD [Primary Care Provider] - 2 Days (for recheck) Additional Instructions: ice and elevate right foot use ibuprofen over the counter as directed start antibiotic for sinus infection
--- NOTE | 2017-06-30 11:12 | RAD ---
INDICATION: Right fifth toe. TECHNIQUE: 3 views of the right fifth toe were obtained. FINDINGS: There is soft tissue swelling adjacent to the middle and distal phalanges. No fracture is seen. Joint spaces appear maintained. IMPRESSION: SOFT TISSUE SWELLING, NO FRACTURE IS SEEN.
== END 2017-06-30 11:36 | disposition home or self-care (01) ==
LOC: UCEAST 09:59
DX: S90.122A Contusion of left lesser toe(s) without damage to nail, initial encounter (principal); J32.9 Chronic sinusitis, unspecified; Z88.1 Allergy status to other antibiotic agents; Z88.2 Allergy status to sulfonamides; Z87.891 Personal history of nicotine dependence; X58.XXXA Exposure to other specified factors, initial encounter; Y92.9 Unspecified place or not applicable
CPT/HCPCS: 99212; G0463

== ENCOUNTER 2017-07-12 09:17 | Emergency (ER) | payer OTHER ==
--- NOTE | 2017-07-12 10:10 | RAD ---
INDICATION: Cough, malaise. LEFT side chest tightness for one hour. COMPARISON: May 16, 2017 TECHNIQUE: Dual energy PA and routine lateral views of the chest were obtained. REPORT: Clear lungs and pleural spaces. Negative for pneumothorax. The heart, pulmonary vasculature, and mediastinal contours are unremarkable. No rib fracture evident. IMPRESSION: No evidence for pneumonia or pneumothorax. Negative exam.
[2017-07-12 10:28] VITALS: BP 136/84
--- NOTE | 2017-07-13 16:13 | ED ---
Ciara Licona Gabriel, scribed for Clint Scott MD on 07/12/17 at 0955 . Complex/Multi-Sys Presentation - HPI Summary HPI Summary: This patient is a 27 year old M presenting to [facility] accompanied by his grandmother with a chief complaint of general complaints. The patient has been off his anxiety medication for a month to detox. Today he is worried about his lungs, heart, back, GI issues, body aches, post nasal drip, sinus congestions, and that he has to mouth breath. He would like to get evaluated for "pieced of mind." The patient rates the pain 2/10 in severity. Symptoms alleviated by Protonix. Patient reports APPIAH and chills. Patient denies fever, SI , diarrhea, and cough. He was seen at and given a Z pack but doesnt believe it has helped him. He does not have any GI medical diagnoses. The patient sees a counselor and took Klonopin [employer]. Patient did not consider seeing his primary today because they cant perform enough tests. - History Of Current Complaint Chief Complaint: EDGeneral Time Seen by Provider: 07/12/17 09:27 Hx Obtained From: Patient Onset/Duration: Still Present Timing: Constant Severity Currently: Mild Severity Initially: Mild Associated Signs And Symptoms: Positive: Other - lungs, heart, back, GI issues, body aches, APPIAH, chills, post nasal drip, sinus congestions, and that he has to mouth breath. - Allergies/Home Medications Allergies/Adverse Reactions: Allergies Allergy/AdvReac Type Severity Reaction Status Date / Time Cefaclor [From [facility]] Allergy Unknown Unknown Verified 07/12/17 09:21 Reaction Details Sulfa Antibiotics Allergy Unknown Unknown Verified 07/12/17 09:21 Reaction Details PMH/Surg Hx/FS Hx/Imm Hx Endocrine/Hematology History: Denies: Hx Anticoagulant Therapy, Hx Diabetes, Hx Thyroid Disease Cardiovascular History: Denies: Hx Congestive Heart Failure, Hx Deep Vein Thrombosis, Hx Hypertension , Hx Myocardial Infarction, Hx Pacemaker/ICD Respiratory History: Denies: Hx Asthma, Hx Chronic Obstructive Pulmonary Disease (COPD), Hx Lung Cancer, Hx Pneumonia, Hx Pulmonary Embolism GI History: Reports: Hx Gastroesophageal Reflux Disease Denies: Hx Gall Bladder Disease, Hx Gastrointestinal Bleed, Hx Ulcer, Hx Urosepsis History: Denies: Hx Dialysis, Hx Kidney Stones, Hx Renal Disease Neurological History: Reports: Other Neuro Impairments/Disorders - hx of childhood febrile seizures Denies: Hx Dementia, Hx Migraine, Hx Seizures, Hx Transient Ischemic Attacks (TIA) Psychiatric History: Reports: Hx Anxiety Denies: Hx Eating Disorder, Hx Depression, Hx Schizophrenia, Hx Bipolar Disorder, Hx of Violent Episodes Against Others - Immunization History Date of Tetanus Vaccine: utd Date of Influenza Vaccine: none Infectious Disease History: No Infectious Disease History: Denies: Hx Clostridium Difficile, Hx Hepatitis, Hx Human Immunodeficiency Virus (HIV), Hx of Known/Suspected MRSA, Hx Shingles, Hx Tuberculosis, Hx Known/ Suspected VRE, Hx Known/Suspected VRSA, History Other Infectious Disease, Traveled Outside the [place] in Last 30 Days - Family History Known Family History: Positive: Hypertension, Other - Anxiety Negative: Cardiac Disease, Diabetes, Renal Disease, Respiratory Disease, Seizure Disorder - Social History Lives: With Family Alcohol Use: None Hx Substance Use: No Substance Use Type: Reports: None Hx Tobacco Use: Yes Smoking Status (MU): Former Smoker Type: Smokeless Tobacco Have You Smoked in the Last Year: No Review of Systems Positive: Chills. Negative: Fever Negative: Erythema Positive: Other - post nasal drip, sinus congestion Negative: Chest Pain Negative: Shortness Of Breath, Cough Negative: Abdominal Pain, Vomiting, Nausea Negative: dysuria, hematuria Positive: Myalgia. Negative: Edema Negative: Rash Neurological: Negative - dizziness Positive: Headache All Other Systems Reviewed And Are Negative: Yes Physical Exam - Summary Physical Exam Summary: Constitutional: Well-developed, Well-nourished, Alert. (-) Distressed Skin: Warm, Dry HENT: Normocephalic; Atraumatic Eyes: Conjunctiva normal Neck: Musculoskeletal ROM normal neck. (-) JVD, (-) Stridor, (-) Tracheal deviation Cardio: Rhythm regular, rate normal, Heart sounds normal; Intact distal pulses; The pedal pulses are 2+ and symmetric. Radial pulses are 2+ and symmetric. (-) Murmur Pulmonary/Chest wall: Effort normal. (-) Respiratory distress, (-) Wheezes, (-) Rales Small amount of congestion on inspiration possibly atelectasis Abd: Soft, (-) Tenderness, (-) Distension, (-) Guarding, (-) Rebound Musculoskeletal: (-) Edema Lymph: (-) Cervical adenopathy Neuro: Alert, Oriented x3 Psych: Mood and affect Normal Triage Information Reviewed: Yes Vital Signs On Initial Exam: Initial Vitals Temp Pulse Resp BP Pulse Ox 97.4 F 87 18 127/76 100 07/12/17 09:22 07/12/17 09:22 07/12/17 09:22 07/12/17 09:22 07/12/17 09:22 Vital Signs Reviewed: Yes - Jayna Coma Scale Coma Scale Total: 15 Diagnostics - Vital Signs Vital Signs Temp Pulse Resp BP Pulse Ox 07/12/17 09:22 97.4 F 87 18 127/76 100 - Laboratory Lab Statement: Any lab studies that have been ordered have been reviewed, and results considered in the medical decision making process. - Radiology CXR Radiology Interpretation Completed By: Radiologist - No evidence for pneumonia or pneumothorax. Negative exam. ED physician has reviewed this radiology report. Complex Multi-Symp Course/Dx Assessment/Plan: This patient is a 27 year old M presenting to [facility] accompanied by his grandmother with a chief complaint of general complaints. The patient has been off his anxiety medication for a month to detox. Today he is worried about his lungs, heart, back, GI issues, body aches, post nasal drip, sinus congestions, and that he has to mouth breath. He would like to get evaluated for pieced of mind. The patient rates the pain 2/10 in severity. Symptoms alleviated by Protonix. Patient reports APPIAH and chills. Patient denies fever, SI, diarrhea, and cough. He was seen at and given a Z pack but doesn t believe it has helped him. He does not have any GI medical diagnoses. The patient sees a counselor and took Klonopin [employer]. Patient did not consider seeing his primary today because they cant perform enough tests.. CXR reveals, per radiologist, No evidence for pneumonia or pneumothorax. Negative exam. Patient will be discharged and follow up from his primary care provider for routine health concerns. The patient is agreeable with this plan. - Diagnoses Provider Diagnoses: Anxiety, Hypochondria, Flu-like symptoms Discharge - Discharge Plan Condition: Stable Disposition: HOME Patient Education Materials: Viral Syndrome (ED) Referrals: Frank Reihc MD [Primary Care Provider] - 2 Days Additional Instructions: Routine health matters can be followed up at your primary care providers office. RETURN TO THE EMERGENCY DEPARTMENT FOR CHANGING OR WORSENING SYMPTOMS. The documentation as recorded by the Ciara fischer Gabriel accurately reflects the service I personally performed and the decisions made by me, Clint Scott MD.
== END 2017-07-12 10:27 | disposition home or self-care (01) ==
LOC: ED 09:17
DX: F41.9 Anxiety disorder, unspecified (principal); F45.21 Hypochondriasis; J11.1 Influenza due to unidentified influenza virus with other respiratory manifestations; R51 Headache; R09.81 Nasal congestion; Z87.891 Personal history of nicotine dependence; Z87.19 Personal history of other diseases of the digestive system
CPT/HCPCS: 71046; 99282

== ENCOUNTER 2017-08-14 09:02 | Emergency (ER) | payer OTHER ==
--- NOTE | 2017-08-14 09:41 | ED ---
Influenza-Like Illness - HPI Summary HPI Summary: 27F presents with sinus congestion sore throat and cough for the past 3 days. He states he has a chronic issue with his sinuses. He states he has been having postnasal drip. He states he has been feeling febrile but denies any known fevers. He admits to muscle aches. He has a history of abdominal pain that is unchanged. He has been seen by GI for this. He denies anyone else being sick. He states he has been developing headache. He states he has health -related anxiety. He denies any chest pain or shortness of breath. He denies any ear pain. He has been taking Flonase for his nasal congestion. He states the Flonase he has been taking for month and has not worked for his sinus issues. He has been previously evaluated by ENT but they decided he did not further need further care. - History of Current Complaint Chief Complaint: EDFluSymptoms Time Seen by Provider: 08/14/17 09:09 - Allergy/Home Medications Allergies/Adverse Reactions: Allergies Allergy/AdvReac Type Severity Reaction Status Date / Time cefaclor Allergy Unknown Unknown Verified 08/14/17 09:07 Reaction Details Sulfa (Sulfonamide Allergy Unknown Unknown Verified 08/14/17 09:07 Antibiotics) Reaction Details PMH/Surg Hx/FS Hx/Imm Hx Endocrine/Hematology History: Denies: Hx Anticoagulant Therapy, Hx Diabetes, Hx Thyroid Disease Cardiovascular History: Denies: Hx Congestive Heart Failure, Hx Deep Vein Thrombosis, Hx Hypertension , Hx Myocardial Infarction, Hx Pacemaker/ICD Respiratory History: Denies: Hx Asthma, Hx Chronic Obstructive Pulmonary Disease (COPD), Hx Lung Cancer, Hx Pneumonia, Hx Pulmonary Embolism GI History: Reports: Hx Gastroesophageal Reflux Disease Denies: Hx Gall Bladder Disease, Hx Gastrointestinal Bleed, Hx Ulcer, Hx Urosepsis History: Denies: Hx Dialysis, Hx Kidney Stones, Hx Renal Disease Neurological History: Reports: Other Neuro Impairments/Disorders - hx of childhood febrile seizures Denies: Hx Dementia, Hx Migraine, Hx Seizures, Hx Transient Ischemic Attacks (TIA) Psychiatric History: Reports: Hx Anxiety Denies: Hx Eating Disorder, Hx Depression, Hx Schizophrenia, Hx Bipolar Disorder, Hx of Violent Episodes Against Others - Immunization History Date of Tetanus Vaccine: utd Date of Influenza Vaccine: none Infectious Disease History: No Infectious Disease History: Denies: Hx Clostridium Difficile, Hx Hepatitis, Hx Human Immunodeficiency Virus (HIV), Hx of Known/Suspected MRSA, Hx Shingles, Hx Tuberculosis, Hx Known/ Suspected VRE, Hx Known/Suspected VRSA, History Other Infectious Disease, Traveled Outside the [place] in Last 30 Days - Family History Known Family History: Positive: None, Hypertension, Other - Anxiety Negative: Cardiac Disease, Diabetes, Renal Disease, Respiratory Disease, Seizure Disorder - Social History Alcohol Use: None Hx Substance Use: No Substance Use Type: Reports: None Hx Tobacco Use: Yes Smoking Status (MU): Former Smoker Type: Smokeless Tobacco Have You Smoked in the Last Year: No Review of Systems Positive: Chills, Fatigue. Negative: Fever Positive: Sore Throat, Nasal Discharge Negative: Chest Pain Positive: Cough. Negative: Shortness Of Breath All Other Systems Reviewed And Are Negative: Yes Physical Exam Triage Information Reviewed: Yes Vital Signs On Initial Exam: Initial Vitals Temp Pulse Resp BP Pulse Ox 97.8 F 82 18 141/87 97 08/14/17 09:04 08/14/17 09:04 08/14/17 09:04 08/14/17 09:04 08/14/17 09:04 Vital Signs Reviewed: Yes Appearance: Positive: Well-Appearing Skin: Positive: Warm, Dry Head/Face: Positive: Normal Head/Face Inspection Eyes: Positive: Normal, EOMI, SHIN, Conjunctiva Clear ENT: Positive: Pharynx normal - cobblestone, Nasal congestion, Nasal drainage, TMs normal, Uvula midline, Other - soft palate symmetric. Negative: Tonsillar swelling, Tonsillar exudate, Trismus, Muffled voice, Sinus tenderness Neck: Positive: Supple, Nontender, No Lymphadenopathy Respiratory/Lung Sounds: Positive: Clear to Auscultation, Breath Sounds Present Cardiovascular: Positive: Normal, RRR Abdomen Description: Positive: Nontender, Soft Bowel Sounds: Positive: Present Musculoskeletal: Positive: Normal Neurological: Positive: Normal Psychiatric: Positive: Normal Diagnostics - Vital Signs Vital Signs Temp Pulse Resp BP Pulse Ox 08/14/17 09:04 97.8 F 82 18 141/87 97 - Laboratory Lab Statement: Any lab studies that have been ordered have been reviewed, and results considered in the medical decision making process. Flu Symptom Course/Dx - Course Course Of Treatment: 27F presents with sinus congestion sore throat and cough for the past 3 days. He states he has a chronic issue with his sinuses. He states he has been having postnasal drip. He states he has been feeling febrile but denies any known fevers. He has a history of abdominal pain that is unchanged. He has been seen by GI for this. He denies anyone else being sick. He states he has been developing headache. He states he has health- related anxiety. He denies any chest pain or shortness of breath. He denies any ear pain. He has been taking Flonase for his nasal congestion. He states the Flonase he has been taking for month and has not worked for his sinus issues. He has been previously evaluated by ENT but they decided he did not further need further care. On exam has nasal congestion present. Pharynx has cobblestoning. Lungs clear to auscultation. Flu neg. discussed that sinus pressure has gotten worst over the three days compared to past month so will treat as bacterial sinusitis with augmentin which has taken before. patient understand and agrees with plan. - Diagnoses Differential Diagnosis/HQI/PQRI: Positive: Influenza, Upper Respiratory Infection, Other - sinsuitis Provider Diagnoses: Upper respiratory infection, Sinusitis Discharge - Discharge Plan Condition: Good Disposition: HOME Prescriptions: Amoxicillin/Clavulanate TAB* [Augmentin TAB 500 mg*] 500 mg PO BID #20 tab Patient Education Materials: Sinusitis (ED) Referrals: Frank Reich MD [Primary Care Provider] - Additional Instructions: Take antibiotic twice a day for 10 days continue nasal steroid as prescribed Use saline spray in nose as much as needed Use humidifier in room or can use warm water in bowls Use zytrec once a day Take Tylenol or ibuprofen every 6 hours for pain Follow up with primary care physician within a week for no improvement Return to ED with any new or worsening symptoms
[2017-08-14 10:22] VITALS: BP 123/75
== END 2017-08-14 10:17 | disposition home or self-care (01) ==
LOC: ED 09:02
DX: J06.9 Acute upper respiratory infection, unspecified (principal); J32.9 Chronic sinusitis, unspecified; Z87.891 Personal history of nicotine dependence; Z88.2 Allergy status to sulfonamides
CPT/HCPCS: 87502; 99282

== ENCOUNTER 2017-12-11 13:23 | Emergency (ER) | payer OTHER ==
--- NOTE | 2017-12-11 15:26 | RAD ---
HISTORY: bloating COMPARISONS: None VIEWS: Frontal views of the abdomen. FINDINGS: BOWEL: There is a nonspecific bowel gas pattern, with nondilated small bowel gas noted. There is minimal stool within the colon. CALCULI: There are no abnormal calculi. BONES AND SOFT TISSUES: There are no osseous abnormalities. OTHER FINDINGS: The lung bases are clear. There is no subphrenic gas. IMPRESSION: NONSPECIFIC BOWEL GAS PATTERN.
[2017-12-11 16:55] VITALS: BP 128/81
--- NOTE | 2017-12-11 17:48 | ED ---
Complex/Multi-Sys Presentation - HPI Summary HPI Summary: Patient is a 27-year-old male who presents emergency department with numerous complaints. He notes that he has been having sinus pressure and pain for roughly 2 weeks. States he has a history of sinusitis. Pain is worse with bending forward. States he's been taking Tylenol and [id number] medication with minimal relief. He denies fever, chills, productive cough. Patient also notes that he has been feeling bloated the last 3 days. He states he has been belching a lot as well. He states he has tried taking Gas-X with minimal improvement. He denies any focal abdominal pain. Denies constipation, vomiting, diarrhea. He has a history of GERD and used to take Protonix. Symptoms are mild in severity. - History Of Current Complaint Chief Complaint: EDBackInjuryPain Time Seen by Provider: 12/11/17 14:41 Hx Obtained From: Patient - Allergies/Home Medications Allergies/Adverse Reactions: Allergies Allergy/AdvReac Type Severity Reaction Status Date / Time cefaclor Allergy Unknown Unknown Verified 12/11/17 13:27 Reaction Details Sulfa (Sulfonamide Allergy Unknown Unknown Verified 12/11/17 13:27 Antibiotics) Reaction Details Home Medications: Home Medications LoraTADine TAB(NF) [Claritin 10 MG TAB(NF)] 10 mg PO DAILY 12/11/17 [History Confirmed 12/11/17] Simethicone TAB* [Mylicon TAB*] 125 mg PO ACHS PRN 12/11/17 [History Confirmed 12/11/17] PMH/Surg Hx/FS Hx/Imm Hx Previously Healthy: Yes Endocrine/Hematology History: Denies: Hx Anticoagulant Therapy, Hx Diabetes, Hx Thyroid Disease Cardiovascular History: Denies: Hx Congestive Heart Failure, Hx Deep Vein Thrombosis, Hx Hypertension , Hx Myocardial Infarction, Hx Pacemaker/ICD Respiratory History: Denies: Hx Asthma, Hx Chronic Obstructive Pulmonary Disease (COPD), Hx Lung Cancer, Hx Pneumonia, Hx Pulmonary Embolism GI History: Reports: Hx Gastroesophageal Reflux Disease Denies: Hx Gall Bladder Disease, Hx Gastrointestinal Bleed, Hx Ulcer, Hx Urosepsis History: Denies: Hx Dialysis, Hx Kidney Stones, Hx Renal Disease Neurological History: Reports: Other Neuro Impairments/Disorders - hx of childhood febrile seizures Denies: Hx Dementia, Hx Migraine, Hx Seizures, Hx Transient Ischemic Attacks (TIA) Psychiatric History: Reports: Hx Anxiety Denies: Hx Eating Disorder, Hx Depression, Hx Schizophrenia, Hx Bipolar Disorder, Hx of Violent Episodes Against Others - Immunization History Date of Tetanus Vaccine: utd Date of Influenza Vaccine: none Infectious Disease History: No Infectious Disease History: Denies: Hx Clostridium Difficile, Hx Hepatitis, Hx Human Immunodeficiency Virus (HIV), Hx of Known/Suspected MRSA, Hx Shingles, Hx Tuberculosis, Hx Known/ Suspected VRE, Hx Known/Suspected VRSA, History Other Infectious Disease, Traveled Outside the [place] in Last 30 Days - Family History Known Family History: Positive: None, Hypertension, Other - Anxiety Negative: Cardiac Disease, Diabetes, Renal Disease, Respiratory Disease, Seizure Disorder - Social History Alcohol Use: None Hx Substance Use: No Substance Use Type: Reports: None Hx Tobacco Use: Yes Smoking Status (MU): Former Smoker Type: Smokeless Tobacco Have You Smoked in the Last Year: No Review of Systems Constitutional: Negative Negative: Fever, Chills Eyes: Negative Positive: Nasal Discharge, Other - sinus congestion and pain Cardiovascular: Negative Respiratory: Negative Positive: Other - abdominal bloating. Negative: Abdominal Pain, Vomiting, Diarrhea, Nausea Genitourinary: Negative Positive: Other - low back pain Positive: Headache All Other Systems Reviewed And Are Negative: Yes Physical Exam Triage Information Reviewed: Yes Vital Signs On Initial Exam: Initial Vitals Temp Pulse Resp BP Pulse Ox 98.2 F 79 16 141/91 99 12/11/17 13:25 12/11/17 13:25 12/11/17 13:25 12/11/17 13:25 12/11/17 13:25 Vital Signs Reviewed: Yes Appearance: Positive: Well-Appearing - Patient sitting up in bed in no acute distress. Family member present. Skin: Positive: Warm, Dry Head/Face: Positive: Normal Head/Face Inspection Eyes: Positive: Normal ENT: Positive: Other - TMs and oropharynx are unremarkable. Pain on palpation over frontal maxillary sinuses. Neck: Positive: Supple, Nontender, No Lymphadenopathy Respiratory/Lung Sounds: Positive: Clear to Auscultation, Breath Sounds Present Cardiovascular: Positive: Normal, RRR Abdomen Description: Positive: Other: - Obese. Abdomen is soft and nontender throughout. Rebound tenderness or guarding. Bowel Sounds: Positive: Present Neurological: Positive: Normal, CN Intact II-III Psychiatric: Positive: Affect/Mood Appropriate Diagnostics - Vital Signs Vital Signs Temp Pulse Resp BP Pulse Ox 12/11/17 16:54 99.1 F 55 18 128/81 98 12/11/17 13:25 98.2 F 79 16 141/91 99 - Laboratory Lab Statement: Any lab studies that have been ordered have been reviewed, and results considered in the medical decision making process. Complex Multi-Symp Course/Dx Course Of Treatment: Patient presenting to the ER for ongoing sinus pain and congestion 2 weeks. As well as abdominal bloating and increased gas. He is afebrile with stable vital signs. Patient has no reproducible abdominal pain on exam and he has a benign abdominal exam. X-ray was obtained to evaluate for obstruction, constipation. Abdominal x-ray shows nonspecific gas pattern without significant stool, obstruction or acute findings, reading per radiology. Given symptoms of sinusitis for roughly 2 weeks, will treat with Augmentin. Recommend patient restart Protonix. To continue Gas-X as directed. Advised close follow-up with PCP if symptoms continue. Advised patient to return to the ER for focal abdominal pain, fever, vomiting and may need blood work and CAT scan done at that time. Patient understands and agrees with plan. - Diagnoses Provider Diagnoses: Sinusitis, Abdominal gas pain, GERD (gastroesophageal reflux disease) Discharge - Sign-Out/Discharge Documenting (check all that apply): Discharge/Admit/Transfer - Discharge Plan Condition: Good Disposition: HOME Prescriptions: Amoxicillin/Clavulanate TAB* [Augmentin TAB 875*] 875 mg PO BID #20 tab Pantoprazole TAB (NF) [Protonix TAB (NF)] 20 mg PO DAILY #30 tab Patient Education Materials: Gastroesophageal Reflux Disease in Children (ED), Sinusitis (ED), Gas and Bloating (ED) Referrals: Frank Reich MD [Primary Care Provider] - Additional Instructions: Call PCP for a close follow up appointment Take medications as directed NSAIDS for pain such as ibuprofen as directed Can continue Gas x Return to ER for increased abdominal discomfort, fever, vomiting or if concerned - Billing Disposition and Condition Condition: GOOD Disposition: Home
== END 2017-12-11 16:54 | disposition home or self-care (01) ==
LOC: ED 13:23
DX: J32.9 Chronic sinusitis, unspecified (principal); R14.1 Gas pain; K21.9 Gastro-esophageal reflux disease without esophagitis; Z87.891 Personal history of nicotine dependence; Z88.2 Allergy status to sulfonamides; Z88.3 Allergy status to other anti-infective agents
CPT/HCPCS: 74018; 99282

== ENCOUNTER 2018-07-05 12:02 | Emergency (ER) | payer OTHER ==
[2018-07-05] MEDS ORDERED: Pantoprazole TAB * 40 MG TAB PO ONE (12:27)
[2018-07-05] MEDS ORDERED: Famotidine TAB* 20 MG PO ONE (12:27)
--- NOTE | 2018-07-05 12:41 | ED ---
Abdominal Pain/Male - HPI Summary HPI Summary: Patient is a 28 y/o M presenting to ED with complaints of episodes of abdominal "gurgling", and bloating intermittently since March. He has been having Sx for the past four days and states that it is difficult to catch breath with Sx. PMHx of ADHD, panic attacks. He notes that Sx are dissimilar to his presentation of panic attack. Patient has been taking GasX, anxiety medications , no ibuprofen taken, no recent steroids taken. No changes in bowel movements/ urination. In room, pain is denied, but describes sensation as a discomfort/ ache. He states that abdomen feels "full", notes nausea and decreased appetite. He has been able to pass gas. No throat tightness, no fever reported. Patient has been off protonix for a while, restarted yesterday. He also notes that he is concerned about sinus infection, noting that he is prone to sinus infections. FMHx of ulcers, IBS. Patient has surface grinding machine hand, Dr. Charles. He has not had endoscopy. On triage, associated severity is rated 6/10, Home medications, allergies, and nurse's note are reviewed. - History of Current Complaint Chief Complaint: EDAbdPain Stated Complaint: ABD PAIN Time Seen by Provider: 07/05/18 12:30 Hx Obtained From: Patient Onset/Duration: Lasting Days - four days, Still Present Timing: Intermittent, Lasting Days - four days Severity Currently: Moderate - 6/10 Pain Intensity: 6 Pain Scale Used: 0-10 Numeric - 6/10 Aggravating Factor(s): Nothing Alleviating Factor(s): Nothing Associated Signs And Symptoms: Positive: Decreased Appetite, Nausea, Other - NEGATIVE - THROAT TIGHTNESS, CHANGE IN BOWEL MOVEMENTS/URINATION; POSITIVE - "BLOATING", DIFFICULTY BREATHING WITH SX PRESENT. Negative: Fever - Allergies/Home Medications Allergies/Adverse Reactions: Allergies Allergy/AdvReac Type Severity Reaction Status Date / Time cefaclor Allergy Unknown Unknown Verified 07/05/18 12:50 Reaction Details Sulfa (Sulfonamide Allergy Unknown Unknown Verified 07/05/18 12:50 Antibiotics) Reaction Details Home Medications: Home Medications LoraTADine TAB(NF) [Claritin 10 MG TAB(NF)] 10 mg PO DAILY 07/05/18 [History Confirmed 07/05/18] Pantoprazole TAB * [Protonix TAB (NF)] 40 mg PO DAILY 07/05/18 [History Confirmed 07/05/18] PMH/Surg Hx/FS Hx/Imm Hx Endocrine/Hematology History: Denies: Hx Anticoagulant Therapy, Hx Diabetes, Hx Thyroid Disease Cardiovascular History: Denies: Hx Congestive Heart Failure, Hx Deep Vein Thrombosis, Hx Hypertension , Hx Myocardial Infarction, Hx Pacemaker/ICD Respiratory History: Denies: Hx Asthma, Hx Chronic Obstructive Pulmonary Disease (COPD), Hx Lung Cancer, Hx Pneumonia, Hx Pulmonary Embolism GI History: Reports: Hx Gastroesophageal Reflux Disease Denies: Hx Gall Bladder Disease, Hx Gastrointestinal Bleed, Hx Ulcer, Hx Urosepsis History: Denies: Hx Dialysis, Hx Kidney Stones, Hx Renal Disease Neurological History: Reports: Other Neuro Impairments/Disorders - hx of childhood febrile seizures Denies: Hx Dementia, Hx Migraine, Hx Seizures, Hx Transient Ischemic Attacks (TIA) Psychiatric History: Reports: Hx Anxiety, Hx Panic Disorder Denies: Hx Eating Disorder, Hx Depression, Hx Schizophrenia, Hx Bipolar Disorder, Hx of Violent Episodes Against Others - Immunization History Date of Tetanus Vaccine: utd Date of Influenza Vaccine: none Infectious Disease History: No Infectious Disease History: Denies: Hx Clostridium Difficile, Hx Hepatitis, Hx Human Immunodeficiency Virus (HIV), Hx of Known/Suspected MRSA, Hx Shingles, Hx Tuberculosis, Hx Known/ Suspected VRE, Hx Known/Suspected VRSA, History Other Infectious Disease, Traveled Outside the [place] in Last 30 Days - Family History Known Family History: Positive: Hypertension, Other - Anxiety, IBS, ulcers Negative: Cardiac Disease, Diabetes, Renal Disease, Respiratory Disease, Seizure Disorder - Social History Alcohol Use: None Hx Substance Use: No Substance Use Type: Reports: None Hx Tobacco Use: Yes Smoking Status (MU): Former Smoker Type: Smokeless Tobacco Have You Smoked in the Last Year: No Review of Systems Negative: Fever Positive: Other - NEGATIVE - THROAT TIGHTNESS Positive: Other - PATIENT REPORTS DIFFICULTY BREATHING WHEN SX ARE PRESENT Positive: Abdominal Pain, Nausea, Other - POSITIVE - ABDOMINAL "BLOATING"; DECREASED APPETITE Positive: other - NEGATIVE - CHANGES IN URINATION/BOWEL MOVEMENTS All Other Systems Reviewed And Are Negative: Yes Physical Exam - Summary Physical Exam Summary: Appearance: Well appearing, no pain distress Skin: warm, dry, reflects adequate perfusion Head/face: normal Eyes: EOMI, SHIN ENT: mucous membranes moist; no sinus tenderness, no nasal discharge Neck: supple, non-tender Respiratory: CTA, breath sounds present Cardiovascular: RRR, pulses symmetrical Abdomen: soft, mild epigastric discomfort, otherwise normal Bowel Sounds: present Musculoskeletal: normal, strength/ROM intact Neuro: normal, sensory motor intact, A&Ox3 Triage Information Reviewed: Yes Vital Signs On Initial Exam: Initial Vitals Temp Pulse Resp BP Pulse Ox 97.7 F 80 16 150/103 98 07/05/18 12:05 07/05/18 12:05 07/05/18 12:05 07/05/18 12:05 07/05/18 12:05 Vital Signs Reviewed: Yes Diagnostics - Vital Signs Vital Signs Temp Pulse Resp BP Pulse Ox 07/05/18 12:05 97.7 F 80 16 150/103 98 - Laboratory Lab Statement: Any lab studies that have been ordered have been reviewed, and results considered in the medical decision making process. Abdominal Pain Fem Course/Dx - Course Course Of Treatment: Nurse's notes reviewed. Patient with a history of GERD/ gastritis who has previously been seen by GI. He has not been taking his proton pump inhibitor. He is having epigastric discomfort and was treated here with GI meds. His exam is benign. He'll be discharged on PPI, H2 tyrone and Carafate and will follow-up with GI. - Diagnoses Differential Diagnosis/HQI/PQRI: Gall Bladder Disease, Pancreatitis, Peptic Ulcer Disease, Other - Gastritis Provider Diagnoses: Gastritis, Anxiety Discharge - Sign-Out/Discharge Documenting (check all that apply): Patient Departure - discharge - Discharge Plan Condition: Improved Disposition: HOME Prescriptions: Famotidine TAB* [Pepcid 20 MG TAB*] 40 mg PO BID #40 tab Sucralfate [Carafate] 1 gm PO ACHS #60 tablet Patient Education Materials: Gastritis (ED) Referrals: Timbo Oden DO [Doctor of Osteopathy] - Frank Reich MD [Primary Care Provider] - Additional Instructions: Follow-up with Dr. Charles your GI doctor with a call today. Avoid alcohol, caffeine, spicy foods or anti-inflammatory medication such as ibuprofen. Return with increased pain, vomiting blood or coffee grounds, dark stools, worse or other concerns. Double your Protonix for the next 3 days. - Billing Disposition and Condition Condition: IMPROVED Disposition: Home - Attestation Statements Document Initiated by Scribe: Yes Documenting Scribe: AKIKO GUZMAN Provider For Whom Scribe is Documenting (Include Credential): CANDACE VALENCIA MD Scribe Attestation: I, AKIKO GUZMAN , scribed for CANDACE VALENCIA MD on 07/05/18 at 1800. Scribe Documentation Reviewed: Yes Provider Attestation: The documentation as recorded by the AKIKO fischer accurately reflects the service I personally performed and the decisions made by me, CANDACE VALENCIA MD Status of Scribe Document: Viewed
[2018-07-05 13:02] VITALS: BP 150/90
== END 2018-07-05 13:01 | disposition home or self-care (01) ==
LOC: ED 12:02
DX: K29.70 Gastritis, unspecified, without bleeding (principal); F41.9 Anxiety disorder, unspecified; Z88.1 Allergy status to other antibiotic agents; Z88.2 Allergy status to sulfonamides; Z87.891 Personal history of nicotine dependence
CPT/HCPCS: 99282; A9270-GY